=== PATIENT | female | born 1975 | race Caucasian/White ===

== ENCOUNTER 2017-03-21 01:49 | Inpatient (IN) | payer MEDICAID ==
[2017-03-21] VITALS (7 sets, daily range): BP systolic 108–132; BP diastolic 59–75
[~2017-03-21] VITALS: Ht 172.7 cm; Wt 83.9 kg
[2017-03-21] MEDS ORDERED: LORazepam Inj 2mg/ml 1ml IV ONE (02:00)
[2017-03-21] MEDS ORDERED: Morphine Sulfate 4mg/ml Inj IVP ONE (02:00)
--- NOTE | 2017-03-21 02:00 | Emergency Room Report ---
History of Present Illness General Chief Complaint: To Be Triaged Source: Patient Present Illness HPI Is a 42-year-old female with no significant past medical history. She presents with chief complaint of epigastric pain. She's been complaining of ulcers/ reflux problem for the last couple weeks. Usually localized to the epigastric area. No radiation. Tonight she had acute onset of severe epigastric pain around 1:30 AM. Was 10 out of 10. She had hard time breathing. No nausea no vomiting. No diarrhea. Never had this problem before. No radiation of the pain. Before, she did get occasional right upper quadrant pain. Allergies: Coded Allergies: No Known Allergies (Unverified , 03/21/17) Patient History Past Medical History: see triage record, old chart reviewed Past Surgical History: other Pertinent Family History: none Social History: Denies: smoking Now: No Immunizations: other Reviewed Nursing Documentation: PMH: Agreed, PSxH: Agreed Review of Systems Eye: Denies: eye pain, blurred vision ENT: Denies: ear pain, nose congestion, throat swelling Respiratory: Denies: cough, shortness of breath Cardiovascular: Denies: chest pain, palpitations Gastrointestinal: Reports: abdominal pain, Denies: diarrhea, nausea, vomiting Musculoskeletal: Denies: back pain, joint pain Skin: Denies: rash Neurological: Denies: headache, numbness Endocrine: Denies: increased thirst, increased urine Hematologic/Lymphatic: Denies: easy bruising All Other Systems: negative except mentioned in HPI Physical Exam vitals unremarkable Sp02 EP Interpretation: reviewed, normal General Appearance: well appearing, no apparent distress, alert Head: normocephalic, atraumatic Eyes: bilateral eye PERRL, bilateral eye EOMI ENT: hearing grossly normal, normal pharynx Neck: full range of motion, supple, no meningismus Respiratory: chest non-tender, lungs clear, normal breath sounds Cardiovascular #1: regular rate, rhythm, no murmur Gastrointestinal: normal bowel sounds, no mass, no organomegaly, no bruit, non- distended, tenderness - Epigastric Musculoskeletal: back normal, gait/station normal, normal range of motion Neurologic: alert, oriented x3 Psychiatric: anxious - Hyperventilating Skin: warm/dry Medical Decision Making Diagnostic Impression: Primary Impression: Cholecystitis, acute ER Course This patient presents with epigastric pain with CT scan showing acute cholecystitis. Her LFTs are normal. WBC slightly elevated. Patient was apprehensive about surgery. Antibiotic started. Will admit for surgical consultation. Dr. Shrestha will be admitting with Dr. Melchor as surgical consultation. Her pain is much improved now. Laboratory Tests Test 03/21/17 02:10 03/21/17 02:59 White Blood Count 13.7 K/UL (4.8-10.8) H Red Blood Count 4.65 M/UL (4.20-5.40) Hemoglobin 14.7 G/DL (12.0-16.0) Hematocrit 43.4 % (37.0-47.0) Mean Corpuscular Volume 93 FL (80-99) Mean Corpuscular Hemoglobin 31.6 PG (27.0-31.0) H Mean Corpuscular Hemoglobin Concent 33.8 G/DL (32.0-36.0) Red Cell Distribution Width 11.4 % (11.6-14.8) L Platelet Count 420 K/UL (150-450) Mean Platelet Volume 5.9 FL (6.5-10.1) L Neutrophils (%) (Auto) 45.3 % (45.0-75.0) Lymphocytes (%) (Auto) 42.8 % (20.0-45.0) Monocytes (%) (Auto) 7.1 % (1.0-10.0) Eosinophils (%) (Auto) 3.6 % (0.0-3.0) H Basophils (%) (Auto) 1.2 % (0.0-2.0) Sodium Level 137 MMOL/L (136-145) Potassium Level 3.8 MMOL/L (3.5-5.1) Chloride Level 101 MMOL/L (98-107) Carbon Dioxide Level 25 MMOL/L (21-32) Anion Gap 11 mmol/L (5-15) Blood Urea Nitrogen 19 mg/dL (7-18) H Creatinine 1.1 MG/DL (0.55-1.30) Estimat Glomerular Filtration Rate 54.5 mL/min (>60) Glucose Level 128 MG/DL (74-106) H Calcium Level 9.8 MG/DL (8.5-10.1) Total Bilirubin 0.4 MG/DL (0.2-1.0) Aspartate Amino Transf (AST/SGOT) 51 U/L (15-37) H Alanine Aminotransferase (ALT/SGPT) 27 U/L (12-78) Alkaline Phosphatase 57 U/L (46-116) Total Protein 8.4 G/DL (6.4-8.2) H Albumin 3.7 G/DL (3.4-5.0) Globulin 4.7 g/dL Albumin/Globulin Ratio 0.8 (1.0-2.7) L Lipase 186 U/L (73-393) Urine Color Pale yellow Urine Appearance Clear Urine pH 5 (4.5-8.0) Urine Specific [place] 1.025 (1.005-1.035) Urine Protein Negative (NEGATIVE) Urine Glucose (UA) Negative (NEGATIVE) Urine Ketones Negative (NEGATIVE) Urine Occult Blood 2+ (NEGATIVE) H Urine Nitrite Negative (NEGATIVE) Urine Bilirubin Negative (NEGATIVE) Urine Urobilinogen Normal MG/DL (0.0-1.0) Urine Leukocyte Esterase Negative (NEGATIVE) Urine RBC 5-10 /HPF (0 - 2) H Urine WBC 0-2 /HPF (0 - 2) Urine Squamous Epithelial Cells Many /LPF (NONE/OCC) H Urine Bacteria Moderate /HPF (NONE) H Urine HCG, Qualitative Negative Lab Results Impression labs with elevated WBC CT/MRI/US Diagnostic Results CT/MRI/US Diagnostic Results : Imaging Test Ordered: CT abdomen and pelvis Impression Read by radiologist. Gallbladder wall thickening and pericholecystic edema. No acute appendicitis. No evidence of acute pancreatitis. Status: improved Disposition: ADMITTED INPATIENT Condition: Serious Scripts No Active Prescriptions or Reported Meds JAKE NOVA M.D. Mar 21, 2017 02:00
[2017-03-21 02:15] LABS: BASOPHILS % (AUTO) 1.2 % (0.0-2.0); EOSINOPHILS % (AUTO) 3.6 % (0.0-3.0); LYMPHOCYTES % (AUTO) 42.8 % (20.0-45.0); MEAN CORPUSCULAR HEMOGLOBIN 31.6 PG (27.0-31.0); MEAN CORPUSCULAR HGB CONC 33.8 G/DL (32.0-36.0); MEAN CORPUSCULAR VOLUME 93 FL (80-99); MEAN PLATELET VOLUME 5.9 FL (6.5-10.1); MONOCYTES % (AUTO) 7.1 % (1.0-10.0); NEUTROPHILS % (AUTO) 45.3 % (45.0-75.0); PLATELET COUNT 420 K/UL (150-450); RED BLOOD COUNT 4.65 M/UL (4.20-5.40); RED CELL DISTRIBUTION WIDTH 11.4 % (11.6-14.8); WHITE BLOOD COUNT 13.7 K/UL (4.8-10.8)
[2017-03-21 02:24] LABS: ANION GAP 11 mmol/L (5-15); CALCIUM 9.8 MG/DL (8.5-10.1); CARBON DIOXIDE 25 MMOL/L (21-32); CHLORIDE 101 MMOL/L (98-107); CREATININE 1.1 MG/DL (0.55-1.30); GLOMERULAR FILTRATION RATE 54.5 mL/min (>60); POTASSIUM 3.8 MMOL/L (3.5-5.1); SODIUM 137 MMOL/L (136-145)
[2017-03-21 02:28] LABS: ALANINE AMINOTRANSFERASE 27 U/L (12-78); ALBUMIN/GLOBULIN RATIO 0.8 (1.0-2.7); ASPARTATE AMINO TRANSFERASE 51 U/L (15-37); LIPASE 186 U/L (73-393); TOTAL PROTEIN 8.4 G/DL (6.4-8.2)
[2017-03-21 03:13] LABS: APPEARANCE,URINE CLEAR; KETONES,URINE NEGATIVE (NEGATIVE); LEUKOCYTE ESTERASE ,URINE NEGATIVE (NEGATIVE); NITRITE,URINE NEGATIVE (NEGATIVE); PH,URINE 5 (4.5-8.0); PROTEIN,URINE NEGATIVE (NEGATIVE); UROBILINOGEN,URINE NORMAL MG/DL (0.0-1.0)
[2017-03-21 03:23] LABS: SQUAMOUS EPITHELIAL CELL,UR MANY /LPF (NONE/OCC); WBC,URINE 0-2 /HPF (0 - 2)
[2017-03-21 03:24] LABS: BACTERIA,URINE MODERATE /HPF
[2017-03-21] MEDS ORDERED: Zosyn 3.375gm inj ONE (03:41)
[2017-03-21] MEDS ORDERED: Piperacillin/Tazobactam 3.375 GM in NS 55 ML IVPB ONE (03:45)
--- NOTE | 2017-03-21 10:18 | Diagnostic Imaging Report ---
Indication: Abdominal pain Technique: Spiral acquisitions obtained through the abdomen and pelvis. No oral contrast utilized, per emergency room physician request No IV contrast utilized, per referring physician request.. Multiplanar reconstructions were generated. Total dose length product 86 mGycm. CTDIvol(s) 14 mGy. Dose reduction achieved using automated exposure control Comparison: None Findings: The gallbladder demonstrates wall thickening. However, no gallstones are demonstrated. Upper limits normal caliber extrahepatic bile ducts are noted. Lack of IV contrast limits assessment of the solid organs. The liver, pancreas, spleen, adrenals, kidneys are all unremarkable. No retroperitoneal or mesenteric mass or adenopathy. No pelvic mass or adenopathy. Normal uterus and ovaries. Dense stool is seen in the colon. The appendix is normal. No evidence of diverticulosis or diverticulitis. No small bowel distention. No free or loculated intraperitoneal air or fluid is evident. The included lung bases are clear. The bones are unremarkable. Impression: Gallbladder wall thickening. No definite gallstones. Findings are suspicious for acute cholecystitis, either acalculous or due to radiographically occult gallstones. Consider nuclear medicine hepatobiliary scanning for further evaluation No other acute or significant finding This agrees with the preliminary interpretation provided overnight by [facility] teleradiology service. The CT scanner at [facility] is accredited by the [employer] and the scans are performed using protocols designed to limit radiation exposure to as low as reasonably achievable to attain images of sufficient resolution adequate for diagnostic evaluation.
--- NOTE | 2017-03-21 11:24 | Consultation ---
History of Present Illness General Date patient seen: Mar 21, 2017 Chief Complaint: Abdominal Pain Present Illness HPI 42 year old otherwise healthy female with no significant past medical history presents with worsening RUQ/epigastric abdominal pain x 1 days. Patient states that two weeks ago she began to note some vague RUQ/epigastric discomfort. She initially did not think much of it but last night began to experience more intense cramping pain in the same area. States she felt as if "something had ruptured" and came to ED for evaluation. Pain described as cramping RUQ/epi pain which is 10/10 at max. Pain caused her to have difficulty with respirations/SOB. No radiation. Associated nausea but no emesis. In ED was given pain medication which helped resolve pain and make respirations more comfortable. Has not has such pain prior but does state that for a few years now she has noted cramping RUQ tenderness intermittently. States that this all began after significant quick weightloss a few years ago. This is her first hospitalization. In ED she was noted to have leukocytosis of 13k and CT with gallbladder wall thickening and edema. Surgery called to evaluate. Allergies: Coded Allergies: No Known Allergies (Unverified , 03/21/17) Medication History No Active Prescriptions or Reported Meds Patient History History Provided By: Patient Healthcare decision maker Resuscitation status Full Code Advanced Directive on File Past Medical/Surgical History Past Medical/Surgical History: (1) Cholecystitis, acute Review of Systems Constitutional: Denies: no symptoms, see HPI, chills, sweats, fever, malaise, weakness, other Eye: Denies: no symptoms, see HPI, eye pain, blurred vision, tearing, double vision, nose pain, nose congestion, acuity changes, discharge, other ENT: Denies: no symptoms, see HPI, ear pain, ear discharge, nose pain, nose congestion, throat pain, throat swelling, mouth pain, hearing loss, nasal discharge, other Respiratory: Denies: no symptoms, see HPI, cough, orthopnea, shortness of breath, stridor, wheezing, WELCH, sputum, other Cardiovascular: Denies: no symptoms, see HPI, chest pain, edema, palpitations, syncope, PND, other Gastrointestinal: Reports: abdominal pain, nausea Genitourinary: Denies: no symptoms, see HPI, discharge, dysuria, frequency, hematuria, pain, retention, incontinence, urgency, vag bleed/dc, other Musculoskeletal: Denies: no symptoms, see HPI, back pain, gout, joint pain, joint swelling, muscle pain, muscle stiffness, other Skin: Denies: no symptoms, see HPI, rash, change in color, change in hair/nails , dryness, lesions, other Psychiatric: Denies: no symptoms, see HPI, prior hx, anxiety, depressed feelings, emotional problems, SI, HI, hallucinations, other Neurological: Denies: no symptoms, see HPI, headache, numbness, paresthesia, seizure, tingling, tremors, focal weakness, syncope, dizziness, other Endocrine: Denies: no symptoms, see HPI, excessive sweating, flushing, intolerance to temperature, increased thirst, increased urine, unexplained weight loss, other Hematologic/Lymphatic: Denies: no symptoms, see HPI, anemia, blood clots, easy bleeding, easy bruising, swollen glands, diathesis, other Physical Exam General Appearance: WD/WN, no apparent distress, alert Lines, tubes and drains: peripheral HEENT: normocephalic, mucous membranes moist, PERRL Neck: normal inspection Respiratory/Chest: normal breath sounds, no respiratory distress, no accessory muscle use Cardiovascular/Chest: normal peripheral pulses, normal rate, regular rhythm Abdomen: normal bowel sounds, soft, no organomegaly, no mass, other - focal RUQ tenderness with Positive Bill's Extremities: normal inspection Skin Exam: normal pigmentation, warm/dry Neurologic: alert, oriented x 3, responsive Last 24 Hour Vital Signs Date Time Temp Pulse Resp B/P (MAP) Pulse Ox O2 Delivery O2 Flow Rate FiO2 03/21/17 08:00 97.7 78 20 108/65 100 Nasal Cannula 3.0 03/21/17 05:00 97.7 71 20 121/75 100 Nasal Cannula 2.0 03/21/17 04:45 97.7 28 132/59 97 Room Air 03/21/17 04:45 97.7 28 132/59 97 Room Air 03/21/17 01:56 97.7 86 28 132/59 97 Room Air Laboratory Tests Test 03/21/17 02:10 03/21/17 02:59 White Blood Count 13.7 K/UL (4.8-10.8) H Red Blood Count 4.65 M/UL (4.20-5.40) Hemoglobin 14.7 G/DL (12.0-16.0) Hematocrit 43.4 % (37.0-47.0) Mean Corpuscular Volume 93 FL (80-99) Mean Corpuscular Hemoglobin 31.6 PG (27.0-31.0) H Mean Corpuscular Hemoglobin Concent 33.8 G/DL (32.0-36.0) Red Cell Distribution Width 11.4 % (11.6-14.8) L Platelet Count 420 K/UL (150-450) Mean Platelet Volume 5.9 FL (6.5-10.1) L Neutrophils (%) (Auto) 45.3 % (45.0-75.0) Lymphocytes (%) (Auto) 42.8 % (20.0-45.0) Monocytes (%) (Auto) 7.1 % (1.0-10.0) Eosinophils (%) (Auto) 3.6 % (0.0-3.0) H Basophils (%) (Auto) 1.2 % (0.0-2.0) Sodium Level 137 MMOL/L (136-145) Potassium Level 3.8 MMOL/L (3.5-5.1) Chloride Level 101 MMOL/L (98-107) Carbon Dioxide Level 25 MMOL/L (21-32) Anion Gap 11 mmol/L (5-15) Blood Urea Nitrogen 19 mg/dL (7-18) H Creatinine 1.1 MG/DL (0.55-1.30) Estimat Glomerular Filtration Rate 54.5 mL/min (>60) Glucose Level 128 MG/DL (74-106) H Calcium Level 9.8 MG/DL (8.5-10.1) Total Bilirubin 0.4 MG/DL (0.2-1.0) Aspartate Amino Transf (AST/SGOT) 51 U/L (15-37) H Alanine Aminotransferase (ALT/SGPT) 27 U/L (12-78) Alkaline Phosphatase 57 U/L (46-116) Total Protein 8.4 G/DL (6.4-8.2) H Albumin 3.7 G/DL (3.4-5.0) Globulin 4.7 g/dL Albumin/Globulin Ratio 0.8 (1.0-2.7) L Lipase 186 U/L (73-393) Urine Color Pale yellow Urine Appearance Clear Urine pH 5 (4.5-8.0) Urine Specific [place] 1.025 (1.005-1.035) Urine Protein Negative (NEGATIVE) Urine Glucose (UA) Negative (NEGATIVE) Urine Ketones Negative (NEGATIVE) Urine Occult Blood 2+ (NEGATIVE) H Urine Nitrite Negative (NEGATIVE) Urine Bilirubin Negative (NEGATIVE) Urine Urobilinogen Normal MG/DL (0.0-1.0) Urine Leukocyte Esterase Negative (NEGATIVE) Urine RBC 5-10 /HPF (0 - 2) H Urine WBC 0-2 /HPF (0 - 2) Urine Squamous Epithelial Cells Many /LPF (NONE/OCC) H Urine Bacteria Moderate /HPF (NONE) H Urine HCG, Qualitative Negative Height (Feet): 5 Height (Inches): 8.00 Weight (Pounds): 185 Medications Current Medications Medications (Trade) Dose Ordered Sig/Lexis Route PRN Reason Start Time Stop Time Status Last Admin Dose Admin Acetaminophen (Tylenol) 650 mg Q4H PRN ORAL FEVER>100.5 03/21/17 11:30 04/20/17 11:29 Al Hydroxide/Mg Hydroxide (Mylanta) 15 ml Q6H PRN ORAL DYSPEPSIA 03/21/17 11:30 04/20/17 11:29 Ampicillin Sodium/ Sulbactam Sodium 3 gm/Sodium Chloride 110 ml @ 220 mls/hr Q8HR IVPB 03/21/17 14:00 03/28/17 13:59 Dextrose/ Electrolytes 1,000 ml @ 125 mls/hr Q8H IV 03/21/17 12:30 04/20/17 12:29 Diphenhydramine HCl (Benadryl) 12.5 mg Q6H PRN IVP Itching/Pruritis 03/21/17 11:30 04/20/17 11:29 Magnesium Hydroxide (Mom) 30 ml BIDPRN PRN ORAL Constipation 03/21/17 11:30 04/20/17 11:29 Morphine Sulfate (Morphine Sulfate) 1 mg Q4H PRN IVP pain scale 1-3 03/21/17 11:30 03/28/17 11:29 Morphine Sulfate (Morphine Sulfate) 2 mg Q4H PRN IVP pain scale 4-6 03/21/17 11:30 03/28/17 11:29 Morphine Sulfate (Morphine Sulfate) 4 mg Q4H PRN IVP pain score 7-10 03/21/17 11:30 03/28/17 11:29 Ondansetron HCl (Zofran) 4 mg Q6H PRN IVP Nausea & Vomiting 03/21/17 11:30 04/20/17 11:29 Sennosides (Senokot) 8.6 mg BIDPRN PRN ORAL Constipation 03/21/17 11:30 04/20/17 11:29 Temazepam (Restoril) 7.5 mg QHS PRN ORAL Insomnia 03/21/17 21:00 03/28/17 20:59 Assessment/Plan Problem List: (1) Cholecystitis, acute Assessment & Plan: 42F with acute cholecystitis. Afebrile, HD stable, leukocytosis 13k, CT with wall edema and inflammation, LFT's okay, Exam with + Bill's. -NPO with IV fluids -IV ABX -Needs Ultrasound and HIDA (ordered) -Trend labs -thank you for this consultation. Will follow with you ICD Codes: K81.0 - Acute cholecystitis SNOMED: [id number] Status: stable JillJai Mar 21, 2017 11:24
[2017-03-21] MEDS ORDERED: Morphine Sulfate 2mg/ml Inj IVP PRN (11:30)
[2017-03-21] MEDS ORDERED: Sennosides 8.6mg ORAL PRN (11:30)
[2017-03-21] MEDS ORDERED: Milk of Magnesia 30ml Ud ORAL PRN (11:30)
[2017-03-21] MEDS ORDERED: Morphine Sulfate 4mg/ml Inj IVP PRN (11:30)
[2017-03-21] MEDS ORDERED: DiphenhydrAMINE 50mg/ml Inj IVP PRN (11:30)
[2017-03-21] MEDS: D5 1/2NS w/KCl 20mEq 1,000 ML IV SCH ×2 (13:37→20:40)
[2017-03-21] MEDS: Ampicillin/Sulbactam Sod 3 GM in NS 110 ML IVPB SCH ×2 (13:39→23:23)
--- NOTE | 2017-03-21 17:00 | Nephrology Progress Note ---
Assessment/Plan Problem List: (1) Abdominal pain (2) Leucocytosis (3) Cholecystitis, acute Plan H&P DICTATED - [id number] Subjective Constitutional: Denies: no symptoms, chills, diaphoresis, fever, malaise, weakness, other HEENT: Denies: no symptoms, eye pain, blurred vision, tearing, double vision, ear pain, ear discharge, nose pain, nose congestion, throat pain, throat swelling, mouth pain, mouth swelling, other Genitourinary: Denies: no symptoms, burning, discharge, frequency, flank pain, hematuria, incontinence, pain, urgency, other Neurologic/Psychiatric: Denies: no symptoms, anxiety, depressed, emotional problems, headache, numbness, paresthesia, pre-existing deficit, seizure, tingling, tremors, weakness, other Subjective In bed, in no apparent distress Objective Objective Last 24 Hour Vital Signs Date Time Temp Pulse Resp B/P (MAP) Pulse Ox O2 Delivery O2 Flow Rate FiO2 03/21/17 12:00 98.0 76 18 110/67 100 Nasal Cannula 03/21/17 08:00 97.7 78 20 108/65 100 Nasal Cannula 3.0 03/21/17 05:00 97.7 71 20 121/75 100 Nasal Cannula 2.0 03/21/17 04:45 97.7 28 132/59 97 Room Air 03/21/17 04:45 97.7 28 132/59 97 Room Air 03/21/17 01:56 97.7 86 28 132/59 97 Room Air Laboratory Tests 03/21/17 02:10: White Blood Count 13.7H, Red Blood Count 4.65, Hemoglobin 14.7, Hematocrit 43.4 , Mean Corpuscular Volume 93, Mean Corpuscular Hemoglobin 31.6H, Mean Corpuscular Hemoglobin Concent 33.8, Red Cell Distribution Width 11.4L, Platelet Count 420, Mean Platelet Volume 5.9L, Neutrophils (%) (Auto) 45.3, Lymphocytes (%) (Auto) 42.8, Monocytes (%) (Auto) 7.1, Eosinophils (%) (Auto) 3.6H, Basophils (%) (Auto) 1.2, Sodium Level 137, Potassium Level 3.8, Chloride Level 101, Carbon Dioxide Level 25, Anion Gap 11, Blood Urea Nitrogen 19H, Creatinine 1.1, Estimat Glomerular Filtration Rate 54.5, Glucose Level 128H, Calcium Level 9.8, Total Bilirubin 0.4, Aspartate Amino Transf (AST/SGOT) 51H, Alanine Aminotransferase (ALT/SGPT) 27, Alkaline Phosphatase 57, Total Protein 8.4H, Albumin 3.7, Globulin 4.7, Albumin/Globulin Ratio 0.8L, Lipase 186 03/21/17 02:59: Urine Color Pale yellow, Urine Appearance Clear, Urine pH 5, Urine Specific [place] 1.025, Urine Protein Negative, Urine Glucose (UA) Negative, Urine Ketones Negative, Urine Occult Blood 2+H, Urine Nitrite Negative, Urine Bilirubin Negative, Urine Urobilinogen Normal, Urine Leukocyte Esterase Negative , Urine RBC 5-10H, Urine WBC 0-2, Urine Squamous Epithelial Cells ManyH, Urine Bacteria ModerateH, Urine HCG, Qualitative Negative Height (Feet): 5 Height (Inches): 8.00 Weight (Pounds): 185 General Appearance: no apparent distress, alert EENT: normal ENT inspection Neck: non-tender, normal alignment, supple, normal inspection Cardiovascular: normal rate, regular rhythm, no JVD Respiratory/Chest: lungs clear, normal breath sounds, no respiratory distress Abdomen: soft, no mass, tender - ruq Extremities: non-tender, normal inspection, no calf tenderness, normal capillary refill Neurologic: alert, oriented x 3, responsive, normal mood/affect Layne Jordan N.P. Mar 21, 2017 16:59
--- NOTE | 2017-03-21 17:55 | Infectious Diseases Prog Note ---
Assessment/Plan Problems: (1) Cholecystitis, acute Assessment & Plan: recommend cholecystectomy for source control, continue unasyn for now. (2) Leucocytosis Assessment & Plan: due to the above, continue unasyn, monitor WBC, and cultures (3) Abdominal pain Assessment & Plan: due to the above, continue pain management as per primary (4) UTI (urinary tract infection) Assessment & Plan: already on unasyn, continue antibiotics pending culture results Subjective Allergies: Coded Allergies: No Known Allergies (Unverified , 03/21/17) Objective Vital Signs Last 24 Hour Vital Signs Date Time Temp Pulse Resp B/P (MAP) Pulse Ox O2 Delivery O2 Flow Rate FiO2 03/21/17 16:00 97.9 72 20 110/65 99 Nasal Cannula 2.0 03/21/17 12:00 98.0 76 18 110/67 100 Nasal Cannula 03/21/17 08:00 97.7 78 20 108/65 100 Nasal Cannula 3.0 03/21/17 05:00 97.7 71 20 121/75 100 Nasal Cannula 2.0 03/21/17 04:45 97.7 28 132/59 97 Room Air 03/21/17 04:45 97.7 28 132/59 97 Room Air 03/21/17 01:56 97.7 86 28 132/59 97 Room Air Height (Feet): 5 Height (Inches): 8.00 Weight (Pounds): 185 Laboratory Tests Test 03/21/17 02:10 03/21/17 02:59 White Blood Count 13.7 K/UL (4.8-10.8) H Red Blood Count 4.65 M/UL (4.20-5.40) Hemoglobin 14.7 G/DL (12.0-16.0) Hematocrit 43.4 % (37.0-47.0) Mean Corpuscular Volume 93 FL (80-99) Mean Corpuscular Hemoglobin 31.6 PG (27.0-31.0) H Mean Corpuscular Hemoglobin Concent 33.8 G/DL (32.0-36.0) Red Cell Distribution Width 11.4 % (11.6-14.8) L Platelet Count 420 K/UL (150-450) Mean Platelet Volume 5.9 FL (6.5-10.1) L Neutrophils (%) (Auto) 45.3 % (45.0-75.0) Lymphocytes (%) (Auto) 42.8 % (20.0-45.0) Monocytes (%) (Auto) 7.1 % (1.0-10.0) Eosinophils (%) (Auto) 3.6 % (0.0-3.0) H Basophils (%) (Auto) 1.2 % (0.0-2.0) Sodium Level 137 MMOL/L (136-145) Potassium Level 3.8 MMOL/L (3.5-5.1) Chloride Level 101 MMOL/L (98-107) Carbon Dioxide Level 25 MMOL/L (21-32) Anion Gap 11 mmol/L (5-15) Blood Urea Nitrogen 19 mg/dL (7-18) H Creatinine 1.1 MG/DL (0.55-1.30) Estimat Glomerular Filtration Rate 54.5 mL/min (>60) Glucose Level 128 MG/DL (74-106) H Calcium Level 9.8 MG/DL (8.5-10.1) Total Bilirubin 0.4 MG/DL (0.2-1.0) Aspartate Amino Transf (AST/SGOT) 51 U/L (15-37) H Alanine Aminotransferase (ALT/SGPT) 27 U/L (12-78) Alkaline Phosphatase 57 U/L (46-116) Total Protein 8.4 G/DL (6.4-8.2) H Albumin 3.7 G/DL (3.4-5.0) Globulin 4.7 g/dL Albumin/Globulin Ratio 0.8 (1.0-2.7) L Lipase 186 U/L (73-393) Urine Color Pale yellow Urine Appearance Clear Urine pH 5 (4.5-8.0) Urine Specific [place] 1.025 (1.005-1.035) Urine Protein Negative (NEGATIVE) Urine Glucose (UA) Negative (NEGATIVE) Urine Ketones Negative (NEGATIVE) Urine Occult Blood 2+ (NEGATIVE) H Urine Nitrite Negative (NEGATIVE) Urine Bilirubin Negative (NEGATIVE) Urine Urobilinogen Normal MG/DL (0.0-1.0) Urine Leukocyte Esterase Negative (NEGATIVE) Urine RBC 5-10 /HPF (0 - 2) H Urine WBC 0-2 /HPF (0 - 2) Urine Squamous Epithelial Cells Many /LPF (NONE/OCC) H Urine Bacteria Moderate /HPF (NONE) H Urine HCG, Qualitative Negative Current Medications Medications (Trade) Dose Ordered Sig/Lexis Route PRN Reason Start Time Stop Time Status Last Admin Dose Admin Acetaminophen (Tylenol) 650 mg Q4H PRN ORAL FEVER>100.5 03/21/17 11:30 04/20/17 11:29 Al Hydroxide/Mg Hydroxide (Mylanta) 15 ml Q6H PRN ORAL DYSPEPSIA 03/21/17 11:30 04/20/17 11:29 Ampicillin Sodium/ Sulbactam Sodium 3 gm/Sodium Chloride 110 ml @ 220 mls/hr Q8HR IVPB 03/21/17 14:00 03/28/17 13:59 03/21/17 13:39 Dextrose/ Electrolytes 1,000 ml @ 125 mls/hr Q8H IV 03/21/17 12:30 04/20/17 12:29 03/21/17 13:37 Diphenhydramine HCl (Benadryl) 12.5 mg Q6H PRN IVP Itching/Pruritis 03/21/17 11:30 04/20/17 11:29 Magnesium Hydroxide (Mom) 30 ml BIDPRN PRN ORAL Constipation 03/21/17 11:30 04/20/17 11:29 Morphine Sulfate (Morphine Sulfate) 1 mg Q4H PRN IVP pain scale 1-3 03/21/17 11:30 03/28/17 11:29 Morphine Sulfate (Morphine Sulfate) 2 mg Q4H PRN IVP pain scale 4-6 03/21/17 11:30 03/28/17 11:29 Morphine Sulfate (Morphine Sulfate) 4 mg Q4H PRN IVP pain score 7-10 03/21/17 11:30 03/28/17 11:29 Ondansetron HCl (Zofran) 4 mg Q6H PRN IVP Nausea & Vomiting 03/21/17 11:30 04/20/17 11:29 Sennosides (Senokot) 8.6 mg BIDPRN PRN ORAL Constipation 03/21/17 11:30 04/20/17 11:29 Temazepam (Restoril) 7.5 mg QHS PRN ORAL Insomnia 03/21/17 21:00 03/28/17 20:59 Yin Gates M.D. Mar 21, 2017 17:55
--- NOTE | 2017-03-21 23:30 | HX and Phyl Repo 2 Sig ---
DATE OF ADMISSION: 03/21/2017 INTERNAL MEDICINE HISTORY AND PHYSICAL HISTORY OF PRESENT ILLNESS: The patient is a 42-year-old female with no significant past medical history who presented with one-day of right upper quadrant and epigastric abdominal pain. She stated that the pain had started about two weeks ago, but got increasingly worse, which prompted her visit last night to the emergency room. She stated that she began with some feeling of fullness even when she has not eaten anything and felt like she had something around her epigastric region that would not just descend down. She described the pain as cramping in the right upper quadrant and epigastric region. She stated the pain yesterday was 10/10, got relieved with IV pain medications. Pain is nonradiating. She had nausea. No vomiting. Denies any fever or chills. ED lab evaluation showed some elevated leukocytes and CT showed gallbladder wall thickening and edema and the patient has been evaluated by Dr. Melchor, surgery. PAST MEDICAL HISTORY: None. HOME MEDICATIONS: None. ALLERGIES: She has no known allergies. SOCIAL HISTORY: She has no history of smoking, alcohol use or illicit drug use. She lives at home with family. REVIEW OF SYSTEMS: A full 12-point review of system was reviewed with the patient and positives as stated in history of present illness. PHYSICAL EXAMINATION: GENERAL: This is a 42-year-old female, in no apparent distress. VITAL SIGNS: Blood pressure 110/67, heart rate is 76, respiratory rate 18, temperature is 98.0 degrees, and O2 saturation is 100% on room air. HEENT: Head is normocephalic and atraumatic with moist mucous membranes. Pupils are equal, round, and reactive to light and accommodation. NECK: Supple. No JVD noted. LUNGS: Clear to auscultation bilaterally. No wheezing. No crackles. CARDIOVASCULAR: Regular rate and rhythm. ABDOMEN: Soft. Right upper quadrant tenderness. Positive bowel sounds in all four quadrants. EXTREMITIES: No edema. No cyanosis. No clubbing. NEUROLOGIC: The patient is awake, alert, and oriented x3 with no focal deficits. LABORATORY AND DIAGNOSTIC DATA: CBC, white count 13.7, hemoglobin 14.7, hematocrit 43.4, and platelet count of 420. BMP, sodium 137, potassium 3.8, chloride 101, bicarbonate 25, BUN 19, creatinine 1.1 and glucose is 128. AST 51, ALT 27, and alkaline phosphatase 57. Lipase is 186. Radiologic finding, CT abdomen and pelvis, impression, gallbladder wall thickening, no definite gallstones. Findings are suspicious for acute cholecystitis, either a calculus or due to radiographically occult gallstones. Consider nuclear medicine, hepatobiliary scanning for further evaluation, no other acute or significant findings. ASSESSMENT: 1. Acute cholecystitis. 2. Right upper quadrant abdominal pain. 3. Mild leukocytosis. PLAN: The patient has been seen by Dr. Melchor. We will follow up with recommendations. She is also being scheduled for HIDA scan tomorrow. We will continue antibiotics at this time and obtain ID consult with Dr. Gates. Agree with current intravenous fluid. We will monitor intake and output. Pain management as needed. We will monitor electrolytes and correct as needed. We will monitor the patient's overall response to treatment. Prabhakar Shrestha M.D. Layne Jordan DR: DAISY JOB#: [id number] CC:
[2017-03-22 00:35] VITALS: BP 107/72
[2017-03-22] MEDS: D5 1/2NS w/KCl 20mEq 1,000 ML IV SCH ×3 (02:23→20:30)
[2017-03-22 04:00] VITALS: BP 110/80
[2017-03-22] MEDS: Ampicillin/Sulbactam Sod 3 GM in NS 110 ML IVPB SCH ×3 (05:10→21:44)
[2017-03-22 07:41] LABS: BASOPHILS % (AUTO) 1.1 % (0.0-2.0); EOSINOPHILS % (AUTO) 5.1 % (0.0-3.0); LYMPHOCYTES % (AUTO) 29.4 % (20.0-45.0); MEAN CORPUSCULAR HEMOGLOBIN 31.7 PG (27.0-31.0); MEAN CORPUSCULAR HGB CONC 33.7 G/DL (32.0-36.0); MEAN CORPUSCULAR VOLUME 94 FL (80-99); MEAN PLATELET VOLUME 5.8 FL (6.5-10.1); MONOCYTES % (AUTO) 9.1 % (1.0-10.0); NEUTROPHILS % (AUTO) 55.3 % (45.0-75.0); PLATELET COUNT 304 K/UL (150-450); RED BLOOD COUNT 4.02 M/UL (4.20-5.40); RED CELL DISTRIBUTION WIDTH 11.7 % (11.6-14.8); WHITE BLOOD COUNT 9.8 K/UL (4.8-10.8)
[2017-03-22 07:50] LABS: PROTHROMBIN TIME 10.5 SEC (9.30-11.50)
[2017-03-22 07:59] LABS: ALANINE AMINOTRANSFERASE 30 U/L (12-78); ALBUMIN/GLOBULIN RATIO 0.8 (1.0-2.7); ANION GAP 5 mmol/L (5-15); ASPARTATE AMINO TRANSFERASE 25 U/L (15-37); CALCIUM 8.4 MG/DL (8.5-10.1); CARBON DIOXIDE 27 MMOL/L (21-32); CHLORIDE 108 MMOL/L (98-107); CREATININE 0.9 MG/DL (0.55-1.30); GLOMERULAR FILTRATION RATE > 60 mL/min (>60); POTASSIUM 3.9 MMOL/L (3.5-5.1); SODIUM 140 MMOL/L (136-145)
[2017-03-22 08:00] VITALS: BP 97/58
--- NOTE | 2017-03-22 10:38 | Infectious Diseases Prog Note ---
Assessment/Plan Problems: (1) Cholecystitis, acute Assessment & Plan: await HIDA scan , recommend cholecystectomy for source control, continue unasyn for now.general surgery is following (2) Leucocytosis Assessment & Plan: due to the above, continue unasyn, monitor WBC, and cultures (3) Abdominal pain Assessment & Plan: due to the above, continue pain management as per primary (4) UTI (urinary tract infection) Assessment & Plan: already on unasyn, continue antibiotics pending culture results Subjective Constitutional: Reports: no symptoms HEENT: Reports: no symptoms Respiratory: Reports: no symptoms Breasts: Reports: no symptoms Cardiovascular: Reports: no symptoms Gastrointestinal/Abdominal: Reports: nausea, bloating, other - abdominal pain Genitourinary: Reports: no symptoms Neurologic: Reports: no symptoms Psychiatric: Reports: no symptoms Skin: Reports: no symptoms Endocrine: Reports: no symptoms Hematologic: Reports: no symptoms Allergies: Coded Allergies: No Known Allergies (Unverified , 03/21/17) Objective Vital Signs Last 24 Hour Vital Signs Date Time Temp Pulse Resp B/P (MAP) Pulse Ox O2 Delivery O2 Flow Rate FiO2 03/22/17 08:00 98.5 65 18 97/58 97 Room Air 03/22/17 04:00 98.1 81 18 110/80 97 Room Air 03/22/17 00:35 99.1 77 18 107/72 100 Room Air 03/21/17 20:28 98.3 69 17 120/66 100 Room Air 03/21/17 20:15 97.7 71 18 116/74 100 Room Air 03/21/17 16:00 97.9 72 20 110/65 99 Nasal Cannula 2.0 03/21/17 12:00 98.0 76 18 110/67 100 Nasal Cannula Height (Feet): 5 Height (Inches): 8.00 Weight (Pounds): 185 General Appearance: WD/WN, no acute distress HEENT: normocephalic, atraumatic, anicteric, mucous membranes moist, PERRL, EOMI, pharynx normal Respiratory/Chest: chest wall non-tender, lungs clear, normal breath sounds, no respiratory distress, no accessory muscle use Cardiovascular: normal peripheral pulses, normal rate, regular rhythm, no gallop/murmur, no JVD Abdomen: normal bowel sounds, soft, non tender, no organomegaly, non distended , no mass Extremities: no cyanosis, no clubbing Skin: no rash, no lesions Neurologic/Psychiatric: alert, oriented x 3 Lymphatic: no neck adenopathy, no groin adenopathy Microbiology Date/Time Source Procedure Growth Status 03/21/17 02:59 Urine,Clean Catch Urine Culture - Preliminary Resulted Laboratory Tests Test 03/22/17 05:15 White Blood Count 9.8 K/UL (4.8-10.8) Red Blood Count 4.02 M/UL (4.20-5.40) L Hemoglobin 12.7 G/DL (12.0-16.0) Hematocrit 37.8 % (37.0-47.0) Mean Corpuscular Volume 94 FL (80-99) Mean Corpuscular Hemoglobin 31.7 PG (27.0-31.0) H Mean Corpuscular Hemoglobin Concent 33.7 G/DL (32.0-36.0) Red Cell Distribution Width 11.7 % (11.6-14.8) Platelet Count 304 K/UL (150-450) Mean Platelet Volume 5.8 FL (6.5-10.1) L Neutrophils (%) (Auto) 55.3 % (45.0-75.0) Lymphocytes (%) (Auto) 29.4 % (20.0-45.0) Monocytes (%) (Auto) 9.1 % (1.0-10.0) Eosinophils (%) (Auto) 5.1 % (0.0-3.0) H Basophils (%) (Auto) 1.1 % (0.0-2.0) Prothrombin Time 10.5 SEC (9.30-11.50) Prothromb Time International Ratio 1.0 (0.9-1.1) Activated Partial Thromboplast Time 30 SEC (23-33) Sodium Level 140 MMOL/L (136-145) Potassium Level 3.9 MMOL/L (3.5-5.1) Chloride Level 108 MMOL/L (98-107) H Carbon Dioxide Level 27 MMOL/L (21-32) Anion Gap 5 mmol/L (5-15) Blood Urea Nitrogen 8 mg/dL (7-18) Creatinine 0.9 MG/DL (0.55-1.30) Estimat Glomerular Filtration Rate > 60 mL/min (>60) Glucose Level 89 MG/DL (74-106) Calcium Level 8.4 MG/DL (8.5-10.1) L Total Bilirubin 0.6 MG/DL (0.2-1.0) Aspartate Amino Transf (AST/SGOT) 25 U/L (15-37) Alanine Aminotransferase (ALT/SGPT) 30 U/L (12-78) Alkaline Phosphatase 46 U/L (46-116) Total Protein 7.0 G/DL (6.4-8.2) Albumin 3.1 G/DL (3.4-5.0) L Globulin 3.9 g/dL Albumin/Globulin Ratio 0.8 (1.0-2.7) L Current Medications Medications (Trade) Dose Ordered Sig/Lexis Route PRN Reason Start Time Stop Time Status Last Admin Dose Admin Acetaminophen (Tylenol) 650 mg Q4H PRN ORAL FEVER>100.5 03/21/17 11:30 04/20/17 11:29 Al Hydroxide/Mg Hydroxide (Mylanta) 15 ml Q6H PRN ORAL DYSPEPSIA 03/21/17 11:30 04/20/17 11:29 Ampicillin Sodium/ Sulbactam Sodium 3 gm/Sodium Chloride 110 ml @ 220 mls/hr Q8HR IVPB 03/21/17 14:00 03/28/17 13:59 03/22/17 05:10 Dextrose/ Electrolytes 1,000 ml @ 125 mls/hr Q8H IV 03/21/17 12:30 04/20/17 12:29 03/22/17 02:23 Diphenhydramine HCl (Benadryl) 12.5 mg Q6H PRN IVP Itching/Pruritis 03/21/17 11:30 04/20/17 11:29 Magnesium Hydroxide (Mom) 30 ml BIDPRN PRN ORAL Constipation 03/21/17 11:30 04/20/17 11:29 Morphine Sulfate (Morphine Sulfate) 1 mg Q4H PRN IVP pain scale 1-3 03/21/17 11:30 03/28/17 11:29 Morphine Sulfate (Morphine Sulfate) 2 mg Q4H PRN IVP pain scale 4-6 03/21/17 11:30 03/28/17 11:29 Morphine Sulfate (Morphine Sulfate) 4 mg Q4H PRN IVP pain score 7-10 03/21/17 11:30 03/28/17 11:29 Ondansetron HCl (Zofran) 4 mg Q6H PRN IVP Nausea & Vomiting 03/21/17 11:30 04/20/17 11:29 Sennosides (Senokot) 8.6 mg BIDPRN PRN ORAL Constipation 03/21/17 11:30 04/20/17 11:29 Temazepam (Restoril) 7.5 mg QHS PRN ORAL Insomnia 03/21/17 21:00 03/28/17 20:59 Yin Gates M.D. Mar 22, 2017 10:38
--- NOTE | 2017-03-22 11:14 | Nephrology Progress Note ---
Assessment/Plan Problem List: (1) Abdominal pain (2) Leucocytosis (3) Cholecystitis, acute Plan Continue current treatment plan Monitor lytes, correct prN Pain management prn ABX per ID Continue IVF F/U with surgeons rec Subjective Constitutional: Denies: no symptoms, chills, diaphoresis, fever, malaise, weakness, other HEENT: Denies: no symptoms, eye pain, blurred vision, tearing, double vision, ear pain, ear discharge, nose pain, nose congestion, throat pain, throat swelling, mouth pain, mouth swelling, other Genitourinary: Denies: no symptoms, burning, discharge, frequency, flank pain, hematuria, incontinence, pain, urgency, other Neurologic/Psychiatric: Denies: no symptoms, anxiety, depressed, emotional problems, headache, numbness, paresthesia, pre-existing deficit, seizure, tingling, tremors, weakness, other Subjective In bed, in no apparent distress Objective Objective Last 24 Hour Vital Signs Date Time Temp Pulse Resp B/P (MAP) Pulse Ox O2 Delivery O2 Flow Rate FiO2 03/22/17 08:00 98.5 65 18 97/58 97 Room Air 03/22/17 04:00 98.1 81 18 110/80 97 Room Air 03/22/17 00:35 99.1 77 18 107/72 100 Room Air 03/21/17 20:28 98.3 69 17 120/66 100 Room Air 03/21/17 20:15 97.7 71 18 116/74 100 Room Air 03/21/17 16:00 97.9 72 20 110/65 99 Nasal Cannula 2.0 03/21/17 12:00 98.0 76 18 110/67 100 Nasal Cannula Intake and Output 03/22/17 03/23/17 19:00 07:00 Intake Total 250 ml Balance 250 ml IV Total 250 ml Laboratory Tests 03/22/17 05:15: White Blood Count 9.8, Red Blood Count 4.02L, Hemoglobin 12.7, Hematocrit 37.8, Mean Corpuscular Volume 94, Mean Corpuscular Hemoglobin 31.7H, Mean Corpuscular Hemoglobin Concent 33.7, Red Cell Distribution Width 11.7, Platelet Count 304, Mean Platelet Volume 5.8L, Neutrophils (%) (Auto) 55.3, Lymphocytes (%) (Auto) 29.4, Monocytes (%) (Auto) 9.1, Eosinophils (%) (Auto) 5.1H, Basophils (%) (Auto ) 1.1, Prothrombin Time 10.5, Prothromb Time International Ratio 1.0, Activated Partial Thromboplast Time 30, Sodium Level 140, Potassium Level 3.9, Chloride Level 108H, Carbon Dioxide Level 27, Anion Gap 5, Blood Urea Nitrogen 8, Creatinine 0.9, Estimat Glomerular Filtration Rate > 60, Glucose Level 89, Calcium Level 8.4L, Total Bilirubin 0.6, Aspartate Amino Transf (AST/SGOT) 25, Alanine Aminotransferase (ALT/SGPT) 30, Alkaline Phosphatase 46, Total Protein 7.0, Albumin 3.1L, Globulin 3.9, Albumin/Globulin Ratio 0.8L Height (Feet): 5 Height (Inches): 8.00 Weight (Pounds): 185 General Appearance: no apparent distress, alert EENT: normal ENT inspection Neck: normal alignment, supple, normal inspection Cardiovascular: normal rate, regular rhythm, no JVD Respiratory/Chest: lungs clear, normal breath sounds, no respiratory distress Abdomen: soft, tender - right upper quadrant Extremities: non-tender, normal inspection, no calf tenderness, normal capillary refill Neurologic: alert, oriented x 3, responsive, normal mood/affect Layne Jordan N.P. Mar 22, 2017 11:14
[2017-03-22] MEDS: Morphine Sulfate 2mg/ml Inj IVP PRN (11:38)
[2017-03-22 12:00] VITALS: BP 101/63
--- NOTE | 2017-03-22 12:11 | General Progress Note ---
Assessment/Plan Assessment/Plan GI CONSULT (Dictated) Assessment - presentation suggestive of GB disease - Await U/S and HIDA. If (+) --> lap riley, If (-), will consider EGD Thank you Abdirizak Michael MD Subjective Allergies: Coded Allergies: No Known Allergies (Unverified , 03/21/17) Objective Last 24 Hour Vital Signs Date Time Temp Pulse Resp B/P (MAP) Pulse Ox O2 Delivery O2 Flow Rate FiO2 03/22/17 08:00 98.5 65 18 97/58 97 Room Air 03/22/17 04:00 98.1 81 18 110/80 97 Room Air 03/22/17 00:35 99.1 77 18 107/72 100 Room Air 03/21/17 20:28 98.3 69 17 120/66 100 Room Air 03/21/17 20:15 97.7 71 18 116/74 100 Room Air 03/21/17 16:00 97.9 72 20 110/65 99 Nasal Cannula 2.0 Intake and Output 03/22/17 03/23/17 19:00 07:00 Intake Total 250 ml Balance 250 ml IV Total 250 ml Laboratory Tests 03/22/17 05:15: White Blood Count 9.8, Red Blood Count 4.02L, Hemoglobin 12.7, Hematocrit 37.8, Mean Corpuscular Volume 94, Mean Corpuscular Hemoglobin 31.7H, Mean Corpuscular Hemoglobin Concent 33.7, Red Cell Distribution Width 11.7, Platelet Count 304, Mean Platelet Volume 5.8L, Neutrophils (%) (Auto) 55.3, Lymphocytes (%) (Auto) 29.4, Monocytes (%) (Auto) 9.1, Eosinophils (%) (Auto) 5.1H, Basophils (%) (Auto ) 1.1, Prothrombin Time 10.5, Prothromb Time International Ratio 1.0, Activated Partial Thromboplast Time 30, Sodium Level 140, Potassium Level 3.9, Chloride Level 108H, Carbon Dioxide Level 27, Anion Gap 5, Blood Urea Nitrogen 8, Creatinine 0.9, Estimat Glomerular Filtration Rate > 60, Glucose Level 89, Calcium Level 8.4L, Total Bilirubin 0.6, Aspartate Amino Transf (AST/SGOT) 25, Alanine Aminotransferase (ALT/SGPT) 30, Alkaline Phosphatase 46, Total Protein 7.0, Albumin 3.1L, Globulin 3.9, Albumin/Globulin Ratio 0.8L Height (Feet): 5 Height (Inches): 8.00 Weight (Pounds): 185 ABDIRIZAK MICHAEL Mar 22, 2017 12:11
[2017-03-22 16:00] VITALS: BP 98/61
--- NOTE | 2017-03-22 19:00 | Consultation ---
DATE OF CONSULTATION: 03/21/2017 INFECTIOUS DISEASE CONSULTATION CONSULTING PHYSICIAN: Yin Gates M.D. ATTENDING PHYSICIAN: Prabhakar Shrestha M.D. REQUESTING PHYSICIAN: Prabhakar Shrestha M.D. REASON FOR CONSULTATION: Acute cholecystitis, recommendation for antibiotic treatment and further management. HISTORY OF PRESENT ILLNESS: The patient is a 42-year-old female with no past medical history, who presented to [facility] with right upper abdominal pain for a couple of days. The patient started having discomfort after she eats, but for the last 48 hours, her pain became more intense, cramping mainly in the right upper quadrant. She felt deep, sharp, dull ache in that area so she was advised to come to the emergency room for further evaluation and management. The patient had nausea, but no vomiting. No fever or chills. No cough or shortness of breath. The patient had CT scan of the abdomen which showed wall thickening and edema suspicious for cholecystitis. She was started on Unasyn empirically by the surgical team. I was consulted by the primary provider for antibiotic treatment and further management. REVIEW OF SYSTEMS: A 14-point system reviewed were all negative apart from the one I mentioned above in my history and physical. PAST SURGICAL HISTORY: Negative. PAST MEDICAL HISTORY: Negative. SOCIAL HISTORY: She works in the [employer] industry. Denied using any drugs or tobacco. She drinks socially. ALLERGIES: No known drug allergy. MEDICATIONS: She is on Unasyn. For the rest of her medications, please refer to MAR. LABORATORY AND DIAGNOSTIC DATA: Laboratories showed white count of 13.7, hemoglobin of 14.7, and platelet count of 420,000. BUN of 19, creatinine of 1.1. AST of 51, ALT of 27. Urinalysis showed moderate amount of bacteria, negative nitrite, and negative leukocyte esterase. Microbiology, urine culture so far negative to date. Imaging, abdomen and pelvis CT scan showed gallbladder wall thickening, no definite gallstone, finding suspicious for acute cholecystitis either acalculous or due to radiographically occult gallstone. PHYSICAL EXAMINATION: VITAL SIGNS: Temperature 97.9, pulse 72, respirations 20, blood pressure 110/65, and pulse oximetry 99% on 2 L nasal cannula. GENERAL: Young female, lying in bed, awake, alert, oriented, not in distress, complaining of right upper quadrant abdominal pain. HEENT: Normocephalic and atraumatic. Pupils reactive to light equally. Moist oral mucosa. No exudate or thrush. NECK: Supple. No lymphadenopathy. CARDIOVASCULAR: Regular rate and rhythm. No murmur. LUNGS: Clear bilaterally. No wheezing or rhonchi. ABDOMEN: Soft. Tender in the right upper quadrant with positive Bill sign. No rebound. No organomegaly. No ascites. EXTREMITIES: No edema or cyanosis. SKIN: No rash or hives. ASSESSMENT AND RECOMMENDATION: 1. Acute cholecystitis. Recommend cholecystectomy for source control. Continue Unasyn empiric treatment for now pending further testing. 2. Leukocytosis due to the above. Continue Unasyn. Monitor WBC and culture. 3. Abdominal pain due to acute cholecystitis. Continue pain management as per the primary. 4. Urinary tract infection. The patient already on Unasyn. Continue antibiotics pending urine culture results. Thank you for the consultation. ID will continue to follow. Yin Gates M.D. DR: Lula JOB#: [id number] CC:
--- NOTE | 2017-03-22 19:01 | General Progress Note ---
Progress Note Progress Note Surgery: patient seen and examined at bedside. no acute events. States that she is feeling a bit better but still has moderate RUQ/epigastric discomfort which is only temporarily improved with morphine. Denies nausea or emesis. low grade temp at 99.1. labs improved, leukocytosis improved. On exam still has + [place] sign. soft, non distended, tender in the RUQ with rebound and guarding. -Pending ultrasound and HIDA scan -continue NPO, IV fluids, IV Abx -Will likely require cholecystectomy given minimal improvement in symptoms in the past 24hrs. will await results of HIDA and US which are scheduled for tomorrow. -thank you for this consultation. will follow with you. Jai Melchor Mar 22, 2017 19:01
[2017-03-22 20:00] VITALS: BP 104/68
--- NOTE | 2017-03-22 22:45 | Consultation ---
DATE OF CONSULTATION: 03/22/2017 GASTROENTEROLOGY CONSULTATION CONSULTING PHYSICIAN: Abdirizak Michael M.D. ATTENDING PHYSICIAN: Prabhakar Shrestha M.D. REFERRING PHYSICIAN: Prabhakar Shrestha M.D. CHIEF COMPLAINT: I was asked to see this patient by Dr. Prabhakar Shrestha for evaluation of abdominal issues. HISTORY OF PRESENT ILLNESS: The patient is a 42-year-old white woman without any significant past medical history, who comes in with a 2-week history of epigastric and right upper quadrant abdominal pain and fullness. The patient has had some intermittent mild episodes of brief discomfort for the past 2 years; however, over the last 2 weeks, she has noted dramatically exquisite discomfort. There has been no nausea or vomiting. She reports having a 15-pound weight loss over the past few years, but this may be due to intentional dietary plan that she has followed. The patient had a CT scan showing some gallbladder wall thickening and edema, but no gallstones were noted. The patient cannot recall any definitive change in her pain with foods and she states it always hurts regardless of eating or not eating. PAST MEDICAL HISTORY: Otherwise negative. MEDICATIONS: None. FAMILY HISTORY: Positive for gallbladder disease and cholecystectomy in the grandparents. SOCIAL HISTORY: The patient is and she is a video producer. She does not smoke or drink alcohol. REVIEW OF SYSTEMS: Otherwise negative. PHYSICAL EXAMINATION: GENERAL: A well-developed, well-nourished, white woman, seen in her room. HEENT: Normocephalic and atraumatic. Sclerae anicteric. Oropharynx clear. NECK: Supple. CHEST: Clear to auscultation. CARDIOVASCULAR: Revealed regular rate. ABDOMEN: Soft with right upper quadrant tenderness to palpation with positive Bill sign. EXTREMITIES: Revealed no edema. LABORATORY AND DIAGNOSTIC DATA: Laboratory data and imaging were noted. ASSESSMENT: This patient presents with right upper quadrant abdominal discomfort and a minimal degree of liver test abnormalities with thickened gallbladder wall on CT scan. The pattern is highly suggestive of biliary colic and cholecystitis. HIDA scan and abdominal ultrasound have been ordered initially to shed light on this matter. In the meantime, I would keep the patient n.p.o. and observe and follow her exam carefully. Should she need cholecystectomy, then surgical manager can proceed with this after the initial imaging studies are obtained and reviewed. RECOMMENDATIONS: Per above discussion and per orders written in the chart. Thank you for asking me to participate in the care of this patient. Abdirizak Michael M.D. DR: EBENEZER JOB#: [id number] CC:
[2017-03-23] VITALS (13 sets, daily range): BP systolic 105–119; BP diastolic 60–76
[2017-03-23] MEDS: D5 1/2NS w/KCl 20mEq 1,000 ML IV SCH ×3 (04:00→20:30)
[2017-03-23 05:19] LABS: BASOPHILS % (AUTO) 1.3 % (0.0-2.0); EOSINOPHILS % (AUTO) 5.8 % (0.0-3.0); LYMPHOCYTES % (AUTO) 35.1 % (20.0-45.0); MEAN CORPUSCULAR VOLUME 94 FL (80-99); MEAN PLATELET VOLUME 5.8 FL (6.5-10.1); MONOCYTES % (AUTO) 8.9 % (1.0-10.0); NEUTROPHILS % (AUTO) 48.9 % (45.0-75.0); PLATELET COUNT 299 K/UL (150-450); RED CELL DISTRIBUTION WIDTH 11.6 % (11.6-14.8); WHITE BLOOD COUNT 7.9 K/UL (4.8-10.8)
[2017-03-23 05:47] LABS: ALANINE AMINOTRANSFERASE 20 U/L (12-78); ALBUMIN/GLOBULIN RATIO 0.8 (1.0-2.7); AMYLASE 60 U/L (25-115); ANION GAP 6 mmol/L (5-15); ASPARTATE AMINO TRANSFERASE 18 U/L (15-37); CALCIUM 8.3 MG/DL (8.5-10.1); CARBON DIOXIDE 25 MMOL/L (21-32); CHLORIDE 108 MMOL/L (98-107); GLOMERULAR FILTRATION RATE > 60 mL/min (>60); LIPASE 205 U/L (73-393); POTASSIUM 3.7 MMOL/L (3.5-5.1); SODIUM 139 MMOL/L (136-145)
[2017-03-23] MEDS: Ampicillin/Sulbactam Sod 3 GM in NS 110 ML IVPB SCH ×3 (05:57→20:50)
[2017-03-23] MEDS: Morphine Sulfate 2mg/ml Inj IVP PRN ×2 (07:04→17:48)
--- NOTE | 2017-03-23 08:54 | Diagnostic Imaging Report ---
Indication: Abdominal pain Technique: IV administration 5.5 mCi 99M technetium mebrofenin. IV administration 2 mg of morphine. Images obtained over the abdomen for just over one hour Comparison: Reference made to CT scan 03/21/2017 Findings: Prompt hepatic tracer uptake. Extrahepatic bile ducts are seen at 15 minutes. Tracer seen within the duodenum at 20 minutes. Gallbladder begins to fill at approximately 57 minutes. Impression: Negative. No evidence of cystic duct obstruction or common bile duct obstruction
--- NOTE | 2017-03-23 10:43 | GI Progress Note ---
Assessment/Plan Problems: (1) Cholecystitis, acute ICD Codes: K81.0 - Acute cholecystitis SNOMED: 97000930 (2) Abdominal pain ICD Codes: R10.9 - Unspecified abdominal pain SNOMED: 41269107 (3) UTI (urinary tract infection) ICD Codes: N39.0 - Urinary tract infection, site not specified SNOMED: 87720970 Status: stable Status Narrative Discussed with Dr. Dick. Assessment/Plan CT AP reviewed >> thickened gallbladder wall - HIDA negative fu surgical recs fu abdominal U/S maintain NPO + IVFs pain mgmt zofran prn abx fu labs Subjective Subjective RUQ abdominal pain and tenderness Nausea without vomiting Objective Last 24 Hour Vital Signs Date Time Temp Pulse Resp B/P (MAP) Pulse Ox O2 Delivery O2 Flow Rate FiO2 03/23/17 09:19 97.9 75 17 119/61 99 Room Air 03/23/17 08:00 97.9 75 17 119/61 99 Room Air 03/23/17 04:00 98.3 68 16 106/61 96 Room Air 03/22/17 20:00 97.7 68 18 104/68 98 Room Air 03/22/17 16:00 98.0 63 18 98/61 99 Room Air 03/22/17 12:00 98.8 60 18 101/63 99 Room Air Laboratory Tests Test 03/23/17 04:15 White Blood Count 7.9 K/UL (4.8-10.8) Red Blood Count 3.80 M/UL (4.20-5.40) L Hemoglobin 12.2 G/DL (12.0-16.0) Hematocrit 35.8 % (37.0-47.0) L Mean Corpuscular Volume 94 FL (80-99) Mean Corpuscular Hemoglobin 32.0 PG (27.0-31.0) H Mean Corpuscular Hemoglobin Concent 34.0 G/DL (32.0-36.0) Red Cell Distribution Width 11.6 % (11.6-14.8) Platelet Count 299 K/UL (150-450) Mean Platelet Volume 5.8 FL (6.5-10.1) L Neutrophils (%) (Auto) 48.9 % (45.0-75.0) Lymphocytes (%) (Auto) 35.1 % (20.0-45.0) Monocytes (%) (Auto) 8.9 % (1.0-10.0) Eosinophils (%) (Auto) 5.8 % (0.0-3.0) H Basophils (%) (Auto) 1.3 % (0.0-2.0) Sodium Level 139 MMOL/L (136-145) Potassium Level 3.7 MMOL/L (3.5-5.1) Chloride Level 108 MMOL/L (98-107) H Carbon Dioxide Level 25 MMOL/L (21-32) Anion Gap 6 mmol/L (5-15) Blood Urea Nitrogen 6 mg/dL (7-18) L Creatinine 1.0 MG/DL (0.55-1.30) Estimat Glomerular Filtration Rate > 60 mL/min (>60) Glucose Level 89 MG/DL (74-106) Calcium Level 8.3 MG/DL (8.5-10.1) L Total Bilirubin 0.5 MG/DL (0.2-1.0) Aspartate Amino Transf (AST/SGOT) 18 U/L (15-37) Alanine Aminotransferase (ALT/SGPT) 20 U/L (12-78) Alkaline Phosphatase 45 U/L (46-116) L Total Protein 7.0 G/DL (6.4-8.2) Albumin 3.1 G/DL (3.4-5.0) L Globulin 3.9 g/dL Albumin/Globulin Ratio 0.8 (1.0-2.7) L Amylase Level 60 U/L (25-115) Lipase 205 U/L (73-393) Height (Feet): 5 Height (Inches): 8.00 Weight (Pounds): 185 General Appearance: WD/WN, no apparent distress, alert Cardiovascular: normal rate Respiratory/Chest: normal breath sounds, no respiratory distress Abdominal Exam: normal bowel sounds, non tender, soft Extremities: normal range of motion, non-tender María Esteves N.PSaba Mar 23, 2017 10:42
--- NOTE | 2017-03-23 12:18 | General Progress Note ---
Progress Note Progress Note Surgery: patient seen and examined at bedside. no acute events. doing okay. still has moderate RUQ discomfort. states she has to lay on her left side because of discomfort in RUQ. has developed more nausea today but no emesis. does not have appetite. afebrile, HD stable, labs okay. on exam still has +thacker's with tenderness, rebound, and guarding in RUQ. States that she has difficulty with respiration when pressings on RUQ because of discomfort. HIDA scan performed and reviewed. no biliary, cystic, or gb abnormality. HIDA negative. CT scan did not demonstrate stones but there was significant inflammation of gallbladder and thickening of gb wall. Pending ultrasound which will be performed this afternoon. She has been npo with IV fluids and IV Abx for >48 hrs without significant improvement of symptoms. Will await ultrasound results to see if any new findings. If she does not improve soon will likely need cholecystectomy during this admission. Jai Melchor Mar 23, 2017 12:18
--- NOTE | 2017-03-23 13:24 | General Progress Note ---
Progress Note Progress Note Surgery: at bedside while ultrasound being performed. multiple gallstones noted with gb wall thickening. polystyrene molding machine tender in RUQ. given above findings recommend cholecystectomy. fortunately was able to get patient onto schedule this afternoon. will proceed with lap vs open riley. Jai Melchor Mar 23, 2017 13:24
--- NOTE | 2017-03-23 13:25 | Pre-Procedure Note/Attestation ---
Pre-Procedure Note/Attestation Complete Prior to Procedure Planned Procedure: not applicable Procedure Narrative: lap vs open cholecystectomy Indications for Procedure Pre-Operative Diagnosis: acute cholecystitis Attestation I attest that I discussed the nature of the procedure; its benefits; risks and complications; and alternatives (and the risks and benefits of such alternatives ), prior to the procedure, with the patient (or the patient's legal senior customer service representative). I attest that, if there was a reasonable possibility of needing a blood transfusion, the patient (or the patient's legal senior customer service representative) was given the [facility] standardized written summary, pursuant to the Sammy Yuli Blood Safety Act ([place] Health and Safety Code # 1645, as amended). I attest that I re-evaluated the patient just prior to the surgery and that there has been no change in the patient's H&P, except as documented below: aJi Melchor Mar 23, 2017 13:25
[2017-03-23] MEDS ORDERED: Iothalamate Meglumine 60% 30ML INJ ONE (13:33)
[2017-03-23] MEDS ORDERED: Surgicel 4in x 8in TOPIC ONE (13:33)
[2017-03-23] MEDS ORDERED: Lidocaine 1% 10mg/ml/Epi 0.005mg/ml 30ml vial INJ ONE (13:34)
[2017-03-23] MEDS ORDERED: Thrombin 5000 units spray kit TOPIC ONE (13:34)
[2017-03-23] MEDS ORDERED: Gelfoam Absorbable 1gm powder pkt TOPIC ONE (13:34)
[2017-03-23] MEDS ORDERED: fentaNYL 100 mcg/2 mL IV ONE (14:00)
[2017-03-23] MEDS ORDERED: LR 1000ml ONE (14:00)
[2017-03-23] MEDS ORDERED: Morphine Sulfate 2mg/ml Inj ONE (14:00)
[2017-03-23] MEDS ORDERED: Zemuron 50mg/5ml Inj IV ONE (14:00)
[2017-03-23] MEDS ORDERED: NS Irrig 1000ml ONE ×2 (14:00)
[2017-03-23] MEDS ORDERED: Midazolam 2mg/2ml Inj ONE (14:00)
[2017-03-23] MEDS ORDERED: Propofol 200mg/20ml IV ONE (14:00)
[2017-03-23] MEDS ORDERED: NS Irrig 1000ml IRRIG ONE (14:30)
[2017-03-23] MEDS ORDERED: LR 1000ml 1,000 ML IVLG SCH (14:42)
[2017-03-23] MEDS ORDERED: Hydromorphone 0.5mg/0.5ml inj IVP PRN (14:45)
[2017-03-23] MEDS ORDERED: DiphenhydrAMINE 50mg/ml Inj IVP PRN (14:45)
[2017-03-23] MEDS ORDERED: Meperidine 50mg/ml Inj(FOR RIGORS ONLY) IVP ONE (14:45)
[2017-03-23] MEDS ORDERED: LORazepam Inj 2mg/ml 1ml IV PRN (14:45)
--- NOTE | 2017-03-23 14:47 | Anethesia Preoperative Eval ---
Anesthesia Pre-op PMH/ROS General Date of Evaluation: Mar 23, 2017 Time of Evaluation: 13:50 Anesthesiologist: Brook ASA Score: ASA 1 Mallampati Score Class I : Soft palate, uvula, fauces, pillars visible Class II: Soft palate, uvula, fauces visible Class III: Soft palate, base of uvula visible Class IV: Only hard plate visible Mallampati Classification: Class II Surgeon: Jill Diagnosis: Cholecystitis Surgical Procedure: Lap riley Anesthesia History: none Allergies: Coded Allergies: No Known Allergies (Unverified , 03/21/17) Medications: see eMAR Past Medical History Cardiovascular: Denies: HTN, CAD, RI, valve dz, arrhythmia, other Pulmonary: Denies: asthma, COPD, ADARSH, other Gastrointestinal/Genitourinary: Denies: GERD, CRI, ESRD, other Neurologic/Psychiatric: Denies: dementia, CVA, depression/anxiety, TIA, other Endocrine: Denies: DM, hypothyroidism, steroids, other HEENT: Denies: cataract (L), cataract (R), glaucoma, [place] (L), [place] (R), other Hematology/Immune: Denies: anemia, DVT, bleeding disorder, other Musculoskeletal/Integumentary: Denies: OA, RA, DJD, DDD, edema, other PMH Narrative: Cholecystitis PSxH Narrative: Denies Anesthesia Pre-op Phys. Exam Physician Exam Last Vital Signs Date Time Temp Pulse Resp B/P (MAP) Pulse Ox O2 Delivery O2 Flow Rate FiO2 03/23/17 12:00 98.5 73 16 109/64 96 Room Air 03/21/17 16:00 2.0 Constitutional: NAD Neurologic: CN 2-12 intact Cardiovascular: RRR, no M/R/G Respiratory: CTA Gastrointestinal: S/NT/ND Airway Exam Mallampati Score: Class II MO: full ROM: full Teeth: intact - Lower wires Anesthesia Pre-op A/P Labs Hematology Test 03/23/17 04:15 White Blood Count 7.9 K/UL (4.8-10.8) Red Blood Count 3.80 M/UL (4.20-5.40) L Hemoglobin 12.2 G/DL (12.0-16.0) Hematocrit 35.8 % (37.0-47.0) L Mean Corpuscular Volume 94 FL (80-99) Mean Corpuscular Hemoglobin 32.0 PG (27.0-31.0) H Mean Corpuscular Hemoglobin Concent 34.0 G/DL (32.0-36.0) Red Cell Distribution Width 11.6 % (11.6-14.8) Platelet Count 299 K/UL (150-450) Mean Platelet Volume 5.8 FL (6.5-10.1) L Neutrophils (%) (Auto) 48.9 % (45.0-75.0) Lymphocytes (%) (Auto) 35.1 % (20.0-45.0) Monocytes (%) (Auto) 8.9 % (1.0-10.0) Eosinophils (%) (Auto) 5.8 % (0.0-3.0) H Basophils (%) (Auto) 1.3 % (0.0-2.0) Chemistry Test 03/23/17 04:15 Sodium Level 139 MMOL/L (136-145) Potassium Level 3.7 MMOL/L (3.5-5.1) Chloride Level 108 MMOL/L (98-107) H Carbon Dioxide Level 25 MMOL/L (21-32) Anion Gap 6 mmol/L (5-15) Blood Urea Nitrogen 6 mg/dL (7-18) L Creatinine 1.0 MG/DL (0.55-1.30) Estimat Glomerular Filtration Rate > 60 mL/min (>60) Glucose Level 89 MG/DL (74-106) Calcium Level 8.3 MG/DL (8.5-10.1) L Total Bilirubin 0.5 MG/DL (0.2-1.0) Aspartate Amino Transf (AST/SGOT) 18 U/L (15-37) Alanine Aminotransferase (ALT/SGPT) 20 U/L (12-78) Alkaline Phosphatase 45 U/L (46-116) L Total Protein 7.0 G/DL (6.4-8.2) Albumin 3.1 G/DL (3.4-5.0) L Globulin 3.9 g/dL Albumin/Globulin Ratio 0.8 (1.0-2.7) L Amylase Level 60 U/L (25-115) Lipase 205 U/L (73-393) Risk Assessment & Plan Assessment: Healthy female with cholecystitis Plan: GETA, rapid sequence, cricoid pressure Status Change Before Surgery: No Pre-Antibiotics Drug: Ancef Given Within 1 Hr of Incision: Yes Time Given: 14:20 ULISSES JENSEN M.D. Mar 23, 2017 14:47
--- NOTE | 2017-03-23 14:49 | Immediate Post-Op Evaluation ---
Immediate Post-Op Evalulation Immediate Post-Op Evalulation Procedure: Lap riley Date of Evaluation: Mar 23, 2017 Time of Evaluation: 15:35 IV Fluids: 900 Blood Pressure Systolic: 112 Blood Pressure Diastolic: 65 Pulse Rate: 65 Respiratory Rate: 18 O2 Sat by Pulse Oximetry: 100 Temperature (Fahrenheit): 97.8 Pain Score (1-10): 0 Nausea: No Vomiting: No Complications No complication Patient Status: awake, patent, extubated, none Hydration Status: adequate Drug: ancef Given Within 1 Hr of Incision: Yes Time Given: 14:15 ULISSES JENSEN M.D. Mar 23, 2017 14:49
--- NOTE | 2017-03-23 15:24 | Brief Operative Note ---
Immediate Post Operative Note Operative Note Pre-op Diagnosis: acute cholecystitis Procedure: laparoscopic cholecystectomy Post-op Diagnosis: same as pre-op Surgeon: Jill Anesthesiologist: Aramis Anesthesia: general Specimen: yes - gallbladder with contained stones Complications: none Condition: stable Fluids: see records Estimated Blood Loss: minimal Drains: none Implant(s) used?: No Jai Melchor Mar 23, 2017 15:24
[2017-03-23] MEDS ORDERED: Norco 10mg/325mg tab ORAL PRN (15:30)
[2017-03-23] MEDS ORDERED: Ketorolac 30mg Inj IV PRN (15:30)
--- NOTE | 2017-03-23 15:36 | 48 Hour Post Anesthesia Eval ---
Post Anesthesia Evaluation Procedure: Lap riley Date of Evaluation: Mar 23, 2017 Time of Evaluation: 16:00 Blood Pressure Systolic: 110 0: 61 Pulse Rate: 67 Respiratory Rate: 18 O2 Sat by Pulse Oximetry: 100 Airway: patent Nausea: No Vomiting: No Pain Intensity: 2 Hydration Status: adequate Cardiopulmonary Status: Stable Mental Status/LOC: patient returned to baseline Follow-up Care/Observations: As per surgery Post-Anesthesia Complications: No anesthetic complication Follow-up care needed: N/A ULISSES JENSEN M.D. Mar 23, 2017 15:36
--- NOTE | 2017-03-23 16:45 | Operative Note - Dictated ---
DATE OF OPERATION: 03/23/2017 PREOPERATIVE DIAGNOSIS: Acute cholecystitis. POSTOPERATIVE DIAGNOSIS: Acute cholecystitis. OPERATION PERFORMED: Laparoscopic cholecystectomy. ATTENDING SURGEON: Jai Melchor M.D. NYLON HOT WIRE CUTTER: None. ANESTHESIOLOGIST: Sammy Doe M.D. ANESTHESIA: General MASTER BLACK BELT. ESTIMATED BLOOD LOSS: Minimal. IV FLUIDS: Please see anesthesia records. SPECIMENS: Gallbladder with contained stones sent to pathology for review COMPLICATIONS: None. DRAINS: None. WOUND CLASSIFICATION: Class III. IV ANTIBIOTICS: The patient was on scheduled Unasyn IV for active infectious process. COUNTS: Sponge and needle count correct x2. SUMMARY OF EVENTS AND FINDINGS: 1. No intraoperative complications. 2. Significantly dense omental adhesions to the gallbladder. 3. Thickened gallbladder wall with significant gallbladder wall edema. 4. Cystic artery and duct identified and circumferentially dissected out and critical view obtained prior to clips being placed. DISPOSITION: PACU. INDICATIONS FOR PROCEDURE: This is a 42-year-old female who presents to the emergency department with complaints of acute worsening right upper quadrant abdominal pain with associated nausea. The patient states that for some time now she has had some colicky right upper quadrant abdominal pain. Over the past few days the pain has significantly worsened to the point that she has difficulty breathing upon inspiration and came to the emergency room for evaluation. CT scan done and identified a thickened gallbladder with pericholecystic fluid and edema. Ultrasound identified multiple gallstones and a thickened wall. HIDA was negative but given patient's clinical examination with persistent right upper quadrant pain after 48 hours and minimal improvement decision was made to proceed to surgery. Surgery was indicated. Risks, benefits, alternatives were discussed with the patient in detail prior to surgery and consent was obtained for laparoscopic possible open cholecystectomy which was performed today. OPERATIVE NOTE: The patient was taken to the operating room and placed on the operating table in supine position. Bilateral arms out. All bony problems were well padded with gel pads. The surgical safety checklist was performed along with the time-out. Preoperatively, the patient was on scheduled intravenous Unasyn for active infectious process. General anesthesia was induced. The patient was intubated. SCDs were placed. No Clarke catheter was inserted given the patient had voided immediately prior to entering the operating room. In the supine position, the abdomen was then prepped and draped in the standard surgical fashion. An infraumbilical midline incision was made and carried down to the fascia which was divided exposing the peritoneal cavity. A 0 Vicryl sutures were placed as stay sutures in the midline fascia. An open Hilda technique was used to entry the peritoneal cavity with a Hilda trocar. Pneumoperitoneum was established at mmHg. The patient tolerated the insufflation well. The laparoscope was then inserted into the abdomen and the abdomen was inspected. No injury from initial trocar placement was noted. The abdomen was inspected and there was some free fluid in the pelvis and inflammatory process in the right upper quadrant with omentum draping over the gallbladder. The remainder of the abdomen was otherwise normal. Subsequently, the following ports were placed under direct visualization along with local anesthetic in the fashion beginning with a 11 mm epigastric port followed by two 5 millimeter right subcostal ports along the right subcostal margin. The peritoneal cavity was inspected and the trocar placements were good without complication. The patient was then placed in reverse Trendelenburg position with right side up. The dense omental adhesions to the gallbladder were gently swept away until an atraumatic grasper could be used to retract the fundus of the gallbladder superiorly over the dome of the liver. Dense filmy adhesions to the gallbladder and omentum were taken down as necessary. The infundibulum was then identified and subsequently retracted toward the right lower quadrant using another grasper. This maneuver exposed closed triangle. The peritoneum overlying the gallbladder infundibulum was incised with electrocautery anteriorly. Then, the posterior peritoneum was dissected out. The triangle was then dissected to expose the cystic duct lymph node, cystic artery, cystic plate, and cystic duct. Once these structures were carefully identified, the cystic artery and duct were circumferentially dissected out and noted to be only structures entering with into the gallbladder. At this time, the cystic duct and artery were then doubly clipped and divided. Electrocautery was then used to separate the peritoneal attachments seen in the gallbladder and the liver bed. There was a significant amount of edema in the posterior aspect between the gallbladder and liver bed making this fairly easy. The gallbladder fossa and cystic artery were inspected to ensure no bleeding. Hemostasis was achieved with electrocautery as necessary. There was no leakage of bile from the cystic duct stump. The gallbladder once freed was placed in endoscopic retrieval bag and removed easily from the abdomen through the epigastric port. Specimen was evaluated and noted to have multiple large gallstones with thickened wall and was sent to pathology for review. The fascia of the infraumbilical and epigastric ports were reapproximated using 0 Vicryl sutures in a [id number] fashion. All remaining skin incisions were then closed using 4-0 Monocryl interrupted subcuticular sutures. The operative field was then cleaned and dried. Steri-Strips and dressings were applied. There were no intraoperative complications and estimated blood loss was minimal. All instrument and sponge counts were correct. A surgical debriefing was performed. The patient was extubated and taken to postanesthesia care unit in stable condition. Jai Melchor M.D. DR: Raz JOB#: [id number] CC:
[2017-03-23] MEDS: Docusate 100mg cap ORAL SCH (17:40)
--- NOTE | 2017-03-23 23:51 | Infectious Diseases Prog Note ---
Assessment/Plan Problems: (1) Cholecystitis, acute Assessment & Plan: HIDA scan was negative , but clinically needs cholecystectomy for source control of her symptoms , continue unasyn for now.had LAP cholecystectomy , general surgery is following (2) Leucocytosis Assessment & Plan: due to the above, continue unasyn, monitor WBC, and cultures (3) Abdominal pain Assessment & Plan: due to the above, continue pain management as per primary (4) UTI (urinary tract infection) Assessment & Plan: already on unasyn, continue antibiotics pending culture results Subjective Constitutional: Reports: anorexia HEENT: Reports: no symptoms Respiratory: Reports: no symptoms Breasts: Reports: no symptoms Cardiovascular: Reports: no symptoms Gastrointestinal/Abdominal: Reports: nausea, bloating Genitourinary: Reports: no symptoms Neurologic: Reports: no symptoms Psychiatric: Reports: no symptoms Skin: Reports: no symptoms Endocrine: Reports: no symptoms Hematologic: Reports: no symptoms Allergies: Coded Allergies: No Known Allergies (Unverified , 03/21/17) Objective Vital Signs Last 24 Hour Vital Signs Date Time Temp Pulse Resp B/P (MAP) Pulse Ox O2 Delivery O2 Flow Rate FiO2 03/23/17 20:39 98.4 73 19 115/65 100 Nasal Cannula 3.0 03/23/17 19:16 98.4 03/23/17 18:18 98.4 03/23/17 16:30 98.4 86 16 109/76 95 Room Air 03/23/17 16:25 98.3 67 23 105/69 100 Nasal Cannula 3.0 03/23/17 16:10 67 23 108/65 100 Nasal Cannula 3.0 03/23/17 15:55 61 27 117/64 100 Nasal Cannula 3.0 03/23/17 15:45 64 19 115/64 98 Nasal Cannula 3.0 03/23/17 15:36 67 18 100 03/23/17 15:35 68 12 112/63 98 Simple Mask 8.0 03/23/17 15:35 65 18 100 03/23/17 15:30 64 13 110/60 99 Simple Mask 8.0 03/23/17 15:25 97.8 73 13 112/61 99 Simple Mask 8.0 03/23/17 12:00 98.5 73 16 109/64 96 Room Air 03/23/17 09:19 97.9 75 17 119/61 99 Room Air 03/23/17 08:00 97.9 75 17 119/61 99 Room Air 03/23/17 04:00 98.3 68 16 106/61 96 Room Air Height (Feet): 5 Height (Inches): 8.00 Weight (Pounds): 185 General Appearance: WD/WN, no acute distress HEENT: normocephalic, atraumatic, anicteric, mucous membranes moist, PERRL Respiratory/Chest: chest wall non-tender, lungs clear, normal breath sounds, no respiratory distress, no accessory muscle use Cardiovascular: normal peripheral pulses, normal rate, regular rhythm, no gallop/murmur, no JVD Abdomen: no organomegaly, non distended, no mass, absent bowel sounds, distended Extremities: no cyanosis, no clubbing Skin: no rash, no lesions Neurologic/Psychiatric: abnormal gait, alert Microbiology Date/Time Source Procedure Growth Status 03/21/17 02:59 Urine,Clean Catch Urine Culture - Preliminary Mixed Gram Positive Organism Resulted Laboratory Tests Test 03/23/17 04:15 White Blood Count 7.9 K/UL (4.8-10.8) Red Blood Count 3.80 M/UL (4.20-5.40) L Hemoglobin 12.2 G/DL (12.0-16.0) Hematocrit 35.8 % (37.0-47.0) L Mean Corpuscular Volume 94 FL (80-99) Mean Corpuscular Hemoglobin 32.0 PG (27.0-31.0) H Mean Corpuscular Hemoglobin Concent 34.0 G/DL (32.0-36.0) Red Cell Distribution Width 11.6 % (11.6-14.8) Platelet Count 299 K/UL (150-450) Mean Platelet Volume 5.8 FL (6.5-10.1) L Neutrophils (%) (Auto) 48.9 % (45.0-75.0) Lymphocytes (%) (Auto) 35.1 % (20.0-45.0) Monocytes (%) (Auto) 8.9 % (1.0-10.0) Eosinophils (%) (Auto) 5.8 % (0.0-3.0) H Basophils (%) (Auto) 1.3 % (0.0-2.0) Sodium Level 139 MMOL/L (136-145) Potassium Level 3.7 MMOL/L (3.5-5.1) Chloride Level 108 MMOL/L (98-107) H Carbon Dioxide Level 25 MMOL/L (21-32) Anion Gap 6 mmol/L (5-15) Blood Urea Nitrogen 6 mg/dL (7-18) L Creatinine 1.0 MG/DL (0.55-1.30) Estimat Glomerular Filtration Rate > 60 mL/min (>60) Glucose Level 89 MG/DL (74-106) Calcium Level 8.3 MG/DL (8.5-10.1) L Total Bilirubin 0.5 MG/DL (0.2-1.0) Aspartate Amino Transf (AST/SGOT) 18 U/L (15-37) Alanine Aminotransferase (ALT/SGPT) 20 U/L (12-78) Alkaline Phosphatase 45 U/L (46-116) L Total Protein 7.0 G/DL (6.4-8.2) Albumin 3.1 G/DL (3.4-5.0) L Globulin 3.9 g/dL Albumin/Globulin Ratio 0.8 (1.0-2.7) L Amylase Level 60 U/L (25-115) Lipase 205 U/L (73-393) Current Medications Medications (Trade) Dose Ordered Sig/Lexis Route PRN Reason Start Time Stop Time Status Last Admin Dose Admin Acetaminophen (Tylenol) 650 mg Q4H PRN ORAL FEVER>100.5 03/21/17 11:30 04/20/17 11:29 Acetaminophen/ Hydrocodone Bitart (Climax 10/325) 1 ea Q4H PRN ORAL Severe Pain (Pain Scale 7-10) 03/23/17 15:30 03/30/17 15:29 03/23/17 20:49 Acetaminophen/ Hydrocodone Bitart (Climax 5/325) 1 tab Q4H PRN ORAL Moderate Pain (Pain Scale 4-6) 03/23/17 15:30 03/30/17 15:29 Al Hydroxide/Mg Hydroxide (Mylanta) 15 ml Q6H PRN ORAL DYSPEPSIA 03/21/17 11:30 04/20/17 11:29 Ampicillin Sodium/ Sulbactam Sodium 3 gm/Sodium Chloride 110 ml @ 220 mls/hr Q8HR IVPB 03/21/17 14:00 03/28/17 13:59 03/23/17 20:50 Dextrose/ Electrolytes 1,000 ml @ 125 mls/hr Q8H IV 03/21/17 12:30 04/20/17 12:29 03/23/17 12:35 Diphenhydramine HCl (Benadryl) 12.5 mg Q6H PRN IVP Itching/Pruritis 03/21/17 11:30 04/20/17 11:29 Diphenhydramine HCl (Benadryl) 25 mg Q15M PRN IVP Itching 03/23/17 14:45 03/23/17 23:59 Docusate Sodium (Colace) 100 mg TWICE A DAY ORAL 03/23/17 18:00 04/22/17 17:59 Hydromorphone HCl (Dilaudid) 0.5 mg Q15M PRN IVP Severe Pain (Pain Scale 7-10) 03/23/17 14:45 03/23/17 23:59 Ketorolac Tromethamine (Toradol 30mg) 30 mg Q6H PRN IV For Pain 03/23/17 15:30 03/28/17 15:29 03/23/17 18:46 Lactated Ringer's 1,000 ml @ 10 mls/hr Q24H IVLG 03/23/17 14:42 03/23/17 23:59 Lorazepam (Ativan 2mg/ml 1ml) 0.5 mg Q15M PRN IV For Anxiety 03/23/17 14:45 03/23/17 23:59 03/23/17 15:53 Magnesium Hydroxide (Mom) 30 ml BIDPRN PRN ORAL Constipation 03/21/17 11:30 04/20/17 11:29 Morphine Sulfate (Morphine Sulfate) 1 mg Q4H PRN IVP pain scale 1-3 03/21/17 11:30 03/28/17 11:29 Morphine Sulfate (Morphine Sulfate) 2 mg Q4H PRN IVP pain scale 4-6 03/21/17 11:30 03/28/17 11:29 03/23/17 17:48 Morphine Sulfate (Morphine Sulfate) 4 mg Q4H PRN IVP pain score 7-10 03/21/17 11:30 03/28/17 11:29 Ondansetron HCl (Zofran) 4 mg Q1H PRN IVP Nausea & Vomiting 03/23/17 14:45 03/23/17 23:59 Ondansetron HCl (Zofran) 4 mg Q6H PRN IVP Nausea & Vomiting 03/21/17 11:30 04/20/17 11:29 Sennosides (Senokot) 8.6 mg BIDPRN PRN ORAL Constipation 03/21/17 11:30 04/20/17 11:29 Temazepam (Restoril) 7.5 mg QHS PRN ORAL Insomnia 03/21/17 21:00 03/28/17 20:59 Yin Gates M.D. Mar 23, 2017 23:51
[2017-03-24 00:17] VITALS: BP 109/63
--- NOTE | 2017-03-24 00:49 | Nephrology Progress Note ---
Assessment/Plan Problem List: (1) Leucocytosis (2) Cholecystitis, acute (3) Abdominal pain (4) UTI (urinary tract infection) Plan Continue current treatment plan Scheduled for lap riley, will follow up post procedure Monitor lytes, correct prn Pain management prn ABX per ID Continue IVF AM labs Subjective Constitutional: Denies: no symptoms, chills, diaphoresis, fever, malaise, weakness, other HEENT: Denies: no symptoms, eye pain, blurred vision, tearing, double vision, ear pain, ear discharge, nose pain, nose congestion, throat pain, throat swelling, mouth pain, mouth swelling, other Genitourinary: Denies: no symptoms, burning, discharge, frequency, flank pain, hematuria, incontinence, pain, urgency, other Neurologic/Psychiatric: Denies: no symptoms, anxiety, depressed, emotional problems, headache, numbness, paresthesia, pre-existing deficit, seizure, tingling, tremors, weakness, other Subjective Late entry for 03/23/17 Objective Objective Last 24 Hour Vital Signs Date Time Temp Pulse Resp B/P (MAP) Pulse Ox O2 Delivery O2 Flow Rate FiO2 03/24/17 00:17 98.5 72 18 109/63 99 Nasal Cannula 3.0 03/23/17 20:39 98.4 73 19 115/65 100 Nasal Cannula 3.0 03/23/17 19:16 98.4 03/23/17 18:18 98.4 03/23/17 16:30 98.4 86 16 109/76 95 Room Air 03/23/17 16:25 98.3 67 23 105/69 100 Nasal Cannula 3.0 03/23/17 16:10 67 23 108/65 100 Nasal Cannula 3.0 03/23/17 15:55 61 27 117/64 100 Nasal Cannula 3.0 03/23/17 15:45 64 19 115/64 98 Nasal Cannula 3.0 03/23/17 15:36 67 18 100 03/23/17 15:35 68 12 112/63 98 Simple Mask 8.0 03/23/17 15:35 65 18 100 03/23/17 15:30 64 13 110/60 99 Simple Mask 8.0 03/23/17 15:25 97.8 73 13 112/61 99 Simple Mask 8.0 03/23/17 12:00 98.5 73 16 109/64 96 Room Air 03/23/17 09:19 97.9 75 17 119/61 99 Room Air 03/23/17 08:00 97.9 75 17 119/61 99 Room Air 03/23/17 04:00 98.3 68 16 106/61 96 Room Air Laboratory Tests 03/23/17 04:15: White Blood Count 7.9, Red Blood Count 3.80L, Hemoglobin 12.2, Hematocrit 35.8L , Mean Corpuscular Volume 94, Mean Corpuscular Hemoglobin 32.0H, Mean Corpuscular Hemoglobin Concent 34.0, Red Cell Distribution Width 11.6, Platelet Count 299, Mean Platelet Volume 5.8L, Neutrophils (%) (Auto) 48.9, Lymphocytes ( %) (Auto) 35.1, Monocytes (%) (Auto) 8.9, Eosinophils (%) (Auto) 5.8H, Basophils (%) (Auto) 1.3, Sodium Level 139, Potassium Level 3.7, Chloride Level 108H, Carbon Dioxide Level 25, Anion Gap 6, Blood Urea Nitrogen 6L, Creatinine 1.0, Estimat Glomerular Filtration Rate > 60, Glucose Level 89, Calcium Level 8.3L, Total Bilirubin 0.5, Aspartate Amino Transf (AST/SGOT) 18, Alanine Aminotransferase (ALT/SGPT) 20, Alkaline Phosphatase 45L, Total Protein 7.0, Albumin 3.1L, Globulin 3.9, Albumin/Globulin Ratio 0.8L, Amylase Level 60, Lipase 205 Height (Feet): 5 Height (Inches): 8.00 Weight (Pounds): 185 General Appearance: no apparent distress, alert EENT: normal ENT inspection Neck: normal alignment Cardiovascular: normal rate, regular rhythm, no JVD Respiratory/Chest: lungs clear, normal breath sounds, no respiratory distress Abdomen: soft, no organomegaly, no mass, tender - right upper quadrant Extremities: non-tender, normal inspection, no calf tenderness Neurologic: alert, oriented x 3, responsive, normal mood/affect SILKE POMPA Mar 24, 2017 00:49
[2017-03-24] MEDS: D5 1/2NS w/KCl 20mEq 1,000 ML IV SCH ×2 (01:50→12:23)
[2017-03-24 04:00] VITALS: BP 113/66
[2017-03-24] MEDS: Ampicillin/Sulbactam Sod 3 GM in NS 110 ML IVPB SCH (06:14)
[2017-03-24 06:19] LABS: BASOPHILS % (AUTO) 0.5 % (0.0-2.0); EOSINOPHILS % (AUTO) 0.4 % (0.0-3.0); MEAN CORPUSCULAR HEMOGLOBIN 31.4 PG (27.0-31.0); MEAN CORPUSCULAR HGB CONC 33.6 G/DL (32.0-36.0); MEAN CORPUSCULAR VOLUME 93 FL (80-99); MEAN PLATELET VOLUME 6.5 FL (6.5-10.1); MONOCYTES % (AUTO) 6.3 % (1.0-10.0); NEUTROPHILS % (AUTO) 83.8 % (45.0-75.0); PLATELET COUNT 283 K/UL (150-450); RED BLOOD COUNT 3.55 M/UL (4.20-5.40); RED CELL DISTRIBUTION WIDTH 11.8 % (11.6-14.8); WHITE BLOOD COUNT 15.2 K/UL (4.8-10.8)
[2017-03-24 07:31] LABS: ALANINE AMINOTRANSFERASE 23 U/L (12-78); ALBUMIN/GLOBULIN RATIO 0.8 (1.0-2.7); ANION GAP 11 mmol/L (5-15); ASPARTATE AMINO TRANSFERASE 26 U/L (15-37); CALCIUM 8.1 MG/DL (8.5-10.1); CARBON DIOXIDE 22 MMOL/L (21-32); CHLORIDE 105 MMOL/L (98-107); CREATININE 0.8 MG/DL (0.55-1.30); GLOMERULAR FILTRATION RATE > 60 mL/min (>60); SODIUM 138 MMOL/L (136-145); TOTAL PROTEIN 6.6 G/DL (6.4-8.2)
[2017-03-24 08:00] VITALS: BP 106/60
[2017-03-24] MEDS: Docusate 100mg cap ORAL SCH (09:00)
[2017-03-24] MEDS: Norco 5mg/325mg tab ORAL PRN ×2 (09:14→14:44)
--- NOTE | 2017-03-24 10:43 | General Progress Note ---
Progress Note Progress Note Surgery: no acute events. doing well. comfortable. no n/v/f/c. ambulatory. tolerating oral diet. pain minimal. afebrile, HD stable, VSS. H/H stable, labs okay, wbc elevated reactive post op Surgery went great yesterday without complication. she is doing very well today abdomen soft, nt/nd, bs+, incision c/d/i POD #1 s/p lap riley for acute cholecystitis. recovering -okay to d/c home today -given source control no longer needs abx -Rx for norco/colace -f/u with me in 1 week. appt given. Jai Melchor Mar 24, 2017 10:43
[2017-03-24] MEDS ORDERED: NORCO 5-325 TA1 EACH ORAL (11:42)
[2017-03-24] MEDS ORDERED: COLACE100 MG ORAL (11:44)
[2017-03-24 12:00] VITALS: BP 95/56
--- NOTE | 2017-03-24 14:52 | GI Progress Note ---
Assessment/Plan Problems: (1) Cholecystitis, acute ICD Codes: K81.0 - Acute cholecystitis SNOMED: 46570034 (2) Abdominal pain ICD Codes: R10.9 - Unspecified abdominal pain SNOMED: 31638763 (3) UTI (urinary tract infection) ICD Codes: N39.0 - Urinary tract infection, site not specified SNOMED: 24217389 Status: stable Status Narrative Discussed with Dr. Dick. Assessment/Plan s/p lap riley fu surgical recs adv diet, tolearting pain mgmt zofran prn abx Subjective Subjective abdominal pain at surgical site Objective Last 24 Hour Vital Signs Date Time Temp Pulse Resp B/P (MAP) Pulse Ox O2 Delivery O2 Flow Rate FiO2 03/24/17 12:00 98.8 68 16 95/56 96 Room Air 03/24/17 08:00 98.2 60 17 106/60 96 Nasal Cannula 2.0 03/24/17 04:00 98.5 63 17 113/66 100 Nasal Cannula 3.0 03/24/17 00:17 98.5 72 18 109/63 99 Nasal Cannula 3.0 03/23/17 20:39 98.4 73 19 115/65 100 Nasal Cannula 3.0 03/23/17 19:16 98.4 03/23/17 18:18 98.4 03/23/17 16:30 98.4 86 16 109/76 95 Room Air 03/23/17 16:25 98.3 67 23 105/69 100 Nasal Cannula 3.0 03/23/17 16:10 67 23 108/65 100 Nasal Cannula 3.0 03/23/17 15:55 61 27 117/64 100 Nasal Cannula 3.0 03/23/17 15:45 64 19 115/64 98 Nasal Cannula 3.0 03/23/17 15:36 67 18 100 03/23/17 15:35 68 12 112/63 98 Simple Mask 8.0 03/23/17 15:35 65 18 100 03/23/17 15:30 64 13 110/60 99 Simple Mask 8.0 03/23/17 15:25 97.8 73 13 112/61 99 Simple Mask 8.0 Laboratory Tests Test 03/24/17 05:00 White Blood Count 15.2 K/UL (4.8-10.8) #H Red Blood Count 3.55 M/UL (4.20-5.40) L Hemoglobin 11.1 G/DL (12.0-16.0) L Hematocrit 33.2 % (37.0-47.0) L Mean Corpuscular Volume 93 FL (80-99) Mean Corpuscular Hemoglobin 31.4 PG (27.0-31.0) H Mean Corpuscular Hemoglobin Concent 33.6 G/DL (32.0-36.0) Red Cell Distribution Width 11.8 % (11.6-14.8) Platelet Count 283 K/UL (150-450) Mean Platelet Volume 6.5 FL (6.5-10.1) Neutrophils (%) (Auto) 83.8 % (45.0-75.0) H Lymphocytes (%) (Auto) 9.0 % (20.0-45.0) L Monocytes (%) (Auto) 6.3 % (1.0-10.0) Eosinophils (%) (Auto) 0.4 % (0.0-3.0) Basophils (%) (Auto) 0.5 % (0.0-2.0) Sodium Level 138 MMOL/L (136-145) Potassium Level 4.0 MMOL/L (3.5-5.1) Chloride Level 105 MMOL/L (98-107) Carbon Dioxide Level 22 MMOL/L (21-32) Anion Gap 11 mmol/L (5-15) Blood Urea Nitrogen 6 mg/dL (7-18) L Creatinine 0.8 MG/DL (0.55-1.30) Estimat Glomerular Filtration Rate > 60 mL/min (>60) Glucose Level 130 MG/DL (74-106) H Calcium Level 8.1 MG/DL (8.5-10.1) L Total Bilirubin 0.5 MG/DL (0.2-1.0) Aspartate Amino Transf (AST/SGOT) 26 U/L (15-37) Alanine Aminotransferase (ALT/SGPT) 23 U/L (12-78) Alkaline Phosphatase 43 U/L (46-116) L Total Protein 6.6 G/DL (6.4-8.2) Albumin 2.9 G/DL (3.4-5.0) L Globulin 3.7 g/dL Albumin/Globulin Ratio 0.8 (1.0-2.7) L Height (Feet): 5 Height (Inches): 8.00 Weight (Pounds): 185 General Appearance: WD/WN, no apparent distress, alert Cardiovascular: normal rate Respiratory/Chest: normal breath sounds, no respiratory distress Abdominal Exam: normal bowel sounds, non tender, soft, incision site - c/d/i Extremities: normal range of motion, non-tender María Esteves N.P. Mar 24, 2017 14:52
[2017-03-24] MEDS ORDERED: Tubing IV Secondary IV ONE (15:28)
--- NOTE | 2017-03-24 21:05 | Infectious Diseases Prog Note ---
Assessment/Plan Problems: (1) Cholecystitis, acute Assessment & Plan: HIDA scan was negative , s/p cholecystectomy for source control of her symptoms , may stop unasyn for now if OK with surgery , general surgery is following (2) Leucocytosis Assessment & Plan: due to the above, improved, may stop unasyn, monitor WBC, and cultures (3) Abdominal pain Assessment & Plan: due to the above, continue pain management as per primary (4) UTI (urinary tract infection) Assessment & Plan: already on unasyn, culture result showed mixed contaminants , may stop unasyn Subjective Constitutional: Reports: no symptoms HEENT: Reports: no symptoms Respiratory: Reports: no symptoms Breasts: Reports: no symptoms Cardiovascular: Reports: no symptoms Gastrointestinal/Abdominal: Reports: no symptoms Genitourinary: Reports: no symptoms Neurologic: Reports: no symptoms Psychiatric: Reports: no symptoms Skin: Reports: no symptoms Endocrine: Reports: no symptoms Hematologic: Reports: no symptoms Allergies: Coded Allergies: No Known Allergies (Unverified , 03/21/17) Objective Vital Signs Last 24 Hour Vital Signs Date Time Temp Pulse Resp B/P (MAP) Pulse Ox O2 Delivery O2 Flow Rate FiO2 03/24/17 12:00 98.8 68 16 95/56 96 Room Air 03/24/17 08:00 98.2 60 17 106/60 96 Nasal Cannula 2.0 03/24/17 04:00 98.5 63 17 113/66 100 Nasal Cannula 3.0 03/24/17 00:17 98.5 72 18 109/63 99 Nasal Cannula 3.0 Height (Feet): 5 Height (Inches): 8.00 Weight (Pounds): 185 General Appearance: WD/WN, no acute distress HEENT: normocephalic, mucous membranes moist, PERRL Respiratory/Chest: chest wall non-tender, lungs clear, normal breath sounds, no respiratory distress, no accessory muscle use Cardiovascular: normal peripheral pulses, normal rate, regular rhythm, no gallop/murmur, no JVD Abdomen: normal bowel sounds, no organomegaly, non distended, no mass, no scars , tender Genitourinary: normal external genitalia Extremities: no cyanosis, no clubbing Skin: no rash, no lesions, no ulcers Neurologic/Psychiatric: alert, oriented x 3, responsive Laboratory Tests Test 03/24/17 05:00 White Blood Count 15.2 K/UL (4.8-10.8) #H Red Blood Count 3.55 M/UL (4.20-5.40) L Hemoglobin 11.1 G/DL (12.0-16.0) L Hematocrit 33.2 % (37.0-47.0) L Mean Corpuscular Volume 93 FL (80-99) Mean Corpuscular Hemoglobin 31.4 PG (27.0-31.0) H Mean Corpuscular Hemoglobin Concent 33.6 G/DL (32.0-36.0) Red Cell Distribution Width 11.8 % (11.6-14.8) Platelet Count 283 K/UL (150-450) Mean Platelet Volume 6.5 FL (6.5-10.1) Neutrophils (%) (Auto) 83.8 % (45.0-75.0) H Lymphocytes (%) (Auto) 9.0 % (20.0-45.0) L Monocytes (%) (Auto) 6.3 % (1.0-10.0) Eosinophils (%) (Auto) 0.4 % (0.0-3.0) Basophils (%) (Auto) 0.5 % (0.0-2.0) Sodium Level 138 MMOL/L (136-145) Potassium Level 4.0 MMOL/L (3.5-5.1) Chloride Level 105 MMOL/L (98-107) Carbon Dioxide Level 22 MMOL/L (21-32) Anion Gap 11 mmol/L (5-15) Blood Urea Nitrogen 6 mg/dL (7-18) L Creatinine 0.8 MG/DL (0.55-1.30) Estimat Glomerular Filtration Rate > 60 mL/min (>60) Glucose Level 130 MG/DL (74-106) H Calcium Level 8.1 MG/DL (8.5-10.1) L Total Bilirubin 0.5 MG/DL (0.2-1.0) Aspartate Amino Transf (AST/SGOT) 26 U/L (15-37) Alanine Aminotransferase (ALT/SGPT) 23 U/L (12-78) Alkaline Phosphatase 43 U/L (46-116) L Total Protein 6.6 G/DL (6.4-8.2) Albumin 2.9 G/DL (3.4-5.0) L Globulin 3.7 g/dL Albumin/Globulin Ratio 0.8 (1.0-2.7) L Yin Gates M.D. Mar 24, 2017 21:05
--- NOTE | 2017-03-25 17:23 | Diagnostic Imaging Report ---
Indication: ABD PAIN abdominal pain, recent abnormal CT scan, recent normal hepatobiliary scan Technique: Mariee-scale and duplex images of the upper abdomen were obtained Comparison: Findings: Gallbladder demonstrate gallstones. Gallbladder wall is borderline thickened, measuring just over 3 mm thick. No pericholecystic fluid. Sonographic Bill's sign is negative. Common bile duct measures 7 mm in diameter. No intrahepatic biliary ductal dilatation. Liver demonstrates normal echogenicity, no focal abnormality. Portal vein and hepatic veins are patent. Pancreas is obscured by bowel gas. Spleen is unremarkable. Left kidney measures 10.7 cm in length. Right kidney measures 10.1 cm length. Both kidneys demonstrate normal echogenicity. There is no hydronephrosis. No focal abnormality . Abdominal aorta is partially obscured by bowel gas, visualized portions are non-aneurysmal . Impression: Cholelithiasis. Borderline gallbladder wall thickening, of uncertain significance given recent normal hepatobiliary nuclear scan. Could indicate chronic cholecystitis Borderline dilated common bile duct, significance doubtful given normal findings on recent nuclear scan Note nonvisualization of the pancreas, incomplete visualization of the abdominal aorta
--- NOTE | 2017-03-25 19:07 | Discharge Summary ---
Discharge Summary Hospital Course Date of Admission Mar 21, 2017 at 03:55 Date of Discharge Mar 24, 2017 at 15:29 Admitting Diagnosis cholecystitis HPI Shirley Gamez is a 42 year old female who was admitted on Mar 21, 2017 at 03:55 for Cholecystitis Hospital Course [id number] Discharge Discharge Disposition Patient was discharged to Home (01) Discharge Diagnoses: Aaliyah Jarrett NP Mar 25, 2017 19:06
--- NOTE | 2017-03-26 14:45 | Discharge Summary 2 SIG ---
DATE OF ADMISSION: 03/21/2017 DATE OF DISCHARGE: 03/24/2017 CONSULTANTS: 1. Jai Melchor M.D. 2. Braydon Dick M.D. 3. Yin Gates M.D. BRIEF HOSPITAL COURSE: The patient is a 42-year-old female with no significant medical history, who presented with one day of right upper quadrant and epigastric abdominal pain, started two weeks prior to admission that has gotten increasingly worse and prompted ED visit. On evaluation, she had leukocytosis and CT of the abdomen showed gallbladder wall thickening. She was admitted for acute cholecystitis. She underwent surgical evaluation. Examination was positive for Bill sign. LFTs were normal. She was placed on NPO and was started on IV Unasyn. She underwent a abdominal ultrasound findings showed cholelithiasis with gallbladder thickening of uncertain significance. She underwent HIDA scan, which was negative for cystic duct obstruction or bile duct obstruction. She was observed medically with IV hydration and IV antibiotics. However, the patient continued with tender right upper quadrant and due to ultrasound findings of multiple gallstones with gallbladder wall thickening, she underwent laparoscopic cholecystectomy on 03/23/2017. There was no intraoperative complications. Post-op findings showed thickened gallbladder wall with significant gallbladder wall edema. First day postop, the patient had good bowel sounds. Abdomen was soft and nontender. Incision was clean, dry, and intact. She was tolerating diet well with minimal pain and has been ambulating well. Vitals were stable. IV Unasyn was discontinued and the patient was cleared for discharge to follow up with Dr. Melchor in a week. FINAL DIAGNOSES: 1. Acute cholecystitis, status post laparoscopic cholecystectomy. 2. Possible urinary tract infection. 3. Leukocytosis. 4. Abdominal pain. DISPOSITION: The patient was discharged home. DISCHARGE MEDICATIONS: Refer to medication list. No need to continue IV antibiotics. Continue with [place] p.r.n. pain. FOLLOWUP: Follow up with Dr. Melchor one week postop. Prabhakar Shrestha M.D. I have been assigned to dictate discharge summary on this account and I was not involved in the patient's management. Aaliyah Jarrett N.P. DR: POPEYE JOB#: [id number] CC: [id number]
== END 2017-03-24 15:29 | disposition home or self-care (01) | DRG 263 ==
LOC: EMR 01:59 → 4E 03:55 → EDBEDREQ 04:17 → 4E 05:26 → 3E 20:13
PROC: 0FT44ZZ Resection of Gallbladder, Percutaneous Endoscopic Approach (ICD-10-PCS; principal; 2017-03-23 14:00)
DX: K81.0 Acute cholecystitis (principal); N39.0 Urinary tract infection, site not specified; D72.829 Elevated white blood cell count, unspecified
CPT/HCPCS: 36415; 74176; 76700; 78266; 80053; 81003; 81025; 82150; 83690; 85025; 85610; 85730; 87086; 94003; 94150; 99285; J2250; J2405